=== PATIENT | female | born 1940 | race Caucasian/White ===

== ENCOUNTER 2025-08-27 12:41 | Inpatient (IN) | payer MEDICARE, SELFPAY ==
[2025-08-26] VITALS (9 sets, daily range): BP systolic 100–147; BP diastolic 44–61; BMI 18.9
--- NOTE | 2025-08-26 14:35 | ED.GENMED ---
History of Present Illness
<DAYAN Smith - Last Filed: 08/26/25 21:26>
General
Chief Complaint: Urinary Symptoms
Source: patient
Exam Limitations: none
Time Seen by Provider: 08/26/25 14:29
Nursing documentation reviewed up to this point in time: agreed with
History of Present Illness
History of Present Illness:
Patient is an 84 a female history of hypertension hyperlipidemia A-fib. On Eliquis presents here to the ER. Family at bedside reports patient is from [place] and they recently brought her to this area via plane last night. Prior to that
she was in a fdc getting rehab. She was getting rehab after hospitalization for UTI sepsis and encephalitis/afib . In he was hospitalized at [facility](for UTI sepsis/change in mental status.
Patient was found to be in A-fib during that hospitalization. Her altered mental status was felt to be multifactorial including new onset cirrhosis with hepatic encephalopathy sepsis secondary to complicated UTI, electrolyte imbalance and possible
underlying cognitive impairment.
Family reports when they left the fdc they were informed that she has pneumonia and was given 1 dose of Levaquin patient complains of pain all over. She has neuropathy. She feels weak. She denies any fevers. She denies any dysuria. She
denies any present cough.
Records from nursing facility state the patient has history of chronic thrombocytopenia
Phy Exam
<DAYAN Smith - Last Filed: 08/26/25 21:26>
General Physical Exam
General Presentation: no apparent distress
General age: appears stated age
General Skin: warm and dry
General Habitus: elderly
General Mental: alert
Cardiovascular Exam
Cardiovascular Exam: regular rate/rhythm
Gastrointestinal Exam
Gastrointestinal Exam: non tender and soft
Neurological Exam
Neurological Exam: alert and oriented x3
Musculoskeletal Exam
Musculoskeletal Exam: full ROM
Skin Exam
Skin Exam: normal color and warm/dry
Psychiatric Exam
Psychiatric Exam: normal mood/affect
Course
<DAYAN Smith - Last Filed: 08/26/25 21:26>
Orders/Labs/Results
Orders:
Orders
08/26/25 14:25
Urinalysis Reflex To Culture Urgent
Date Specimen was Collected: 08/26/25
Time Specimen was Collected: 14:25
Urine Microscopic Reflex Cult Urgent
Urine Culture Urgent
MARII Source: U
Specimen Description:
Date Specimen was Collected: 08/26/25
Time Specimen was Collected: 14:25
08/26/25 14:45
Straight cath- Treatment ONCE
08/26/25 14:46
0.9% Sodium Chloride 500 ml [Nss] 500 ml IV BOLUS
Chest [CR Chest - 2 Views ] Urgent
Comment:
Reason For Exam: cough
08/26/25 18:08
COVID-19 Antigen Urgent
Source: Nasal Swab
Complete Blood Count/With Diff Urgent
Comprehensive Metabolic Panel Urgent
Influenza A+B Rapid Molecular Urgent
MARII Source: Nasal Swab
Specimen Description:
08/26/25 19:02
Electrocardiogram (*1) Stat
Reason for Study: Other
Other Reason for Exam: chest pain
EKG- Treatment ONCE
08/26/25 19:41
CT Abd/pelvis W Iv Cont Urgent
Comment:
Reason For Exam: abd pain/distension
08/26/25 19:42
Bladder Scan- Treatment ONCE
Morphine Sulfate 2 mg IV NOW STA
08/26/25 20:40
Ammonia Urgent
08/26/25 21:21
Cefepime HCl [Maxipime] 1,000 mg IV NOW STA
Doxycycline Hyclate [Vibramycin] 100 mg 0.9% Sodium Chloride 250 ml [Nss] 250 ml IV NOW
Abnormal Lab Results
08/26/25 08/26/25 08/26/25
14: 18:08 20:40
RBC 3.59 L 10^6/uL
(4.20-5.40)
Hgb 11.3 L g/dL
(12.0-16.0)
Hct 32.9 L %
(37.0-47.0)
MCH 31.5 H pg
(27.0-31.0)
RDW 17.9 H %
(11.5-14.5)
Plt Count 79 L 10^3/uL
(130-400)
Absolute Lymphs (auto) 0.7 L 10^3/uL
(1.2-3.4)
Lymphocytes % 13.6 L %
(20.5-51.1)
Monocytes % 11.4 H %
(1.7-9.3)
Sodium 131 L mmol/L
(135-145)
Glucose 116 H mg/dl
(70-99)
AST 44 H U/L
(14-36)
ALT 47 H U/L
(0-35)
Ammonia < 9 L umol/L
(9-30)
Total Protein 5.9 L g/dl
(6.3-8.2)
Ur Occult Blood Reflex 1+ A
(Negative)
Urine Bilirubin 1+ A
(Negative)
Leukocyte Esterase Rfl 2+ A
(Negative)
Urine Bacteria (Reflex) Moderate A
(Negative)
Urine Albumin (Reflex) 3+ A
(Neg - Trace)
08/26/25 18:08
08/26/25 18:08
Vital Signs
Initial and Last Documented VS:
Initial Vital Signs
Temp Pulse Resp Pulse Ox
98.7 F 71 16 98
08/26/25 12:40 08/26/25 12:40 08/26/25 12:40 08/26/25 12:40
Last Documented Vital Signs
Temp Pulse Resp BP Pulse Ox
98.0 F 75 22 115/61 96
08/26/25 19:52 08/26/25 21:00 08/26/25 21:00 08/26/25 21:00 08/26/25 21:00
Glost Tile Shader consulted with Physician
Glost Tile Shader consulted with physician?: Yes
Name of Physician Consulted: Abhliash
<Jairon Cerda, DO - Last Filed: 08/26/25 19:43>
Orders/Labs/Results
Orders:
Orders
08/26/25 14:25
Urinalysis Reflex To Culture Urgent
Date Specimen was Collected: 08/26/25
Time Specimen was Collected: 14:25
Urine Microscopic Reflex Cult Urgent
Urine Culture Urgent
MARII Source: U
Specimen Description:
Date Specimen was Collected: 08/26/25
Time Specimen was Collected: 14:25
08/26/25 14:45
Straight cath- Treatment ONCE
08/26/25 14:46
0.9% Sodium Chloride 500 ml [Nss] 500 ml IV BOLUS
Chest [CR Chest - 2 Views ] Urgent
Comment:
Reason For Exam: cough
08/26/25 18:08
COVID-19 Antigen Urgent
Source: Nasal Swab
Complete Blood Count/With Diff Urgent
Comprehensive Metabolic Panel Urgent
Influenza A+B Rapid Molecular Urgent
MARII Source: Nasal Swab
Specimen Description:
08/26/25 19:02
Electrocardiogram (*1) Stat
Reason for Study: Other
Other Reason for Exam: chest pain
EKG- Treatment ONCE
08/26/25 19:41
CT Abd/pelvis W Iv Cont Urgent
Comment:
Reason For Exam: abd pain/distension
08/26/25 19:42
Bladder Scan- Treatment ONCE
Morphine Sulfate 2 mg IV NOW STA
08/26/25 20:40
Ammonia Urgent
08/26/25 21:21
Cefepime HCl [Maxipime] 1,000 mg IV NOW STA
Doxycycline Hyclate [Vibramycin] 100 mg 0.9% Sodium Chloride 250 ml [Nss] 250 ml IV NOW
Abnormal Lab Results
08/26/25 08/26/25 08/26/25
14: 18:08 20:40
RBC 3.59 L 10^6/uL
(4.20-5.40)
Hgb 11.3 L g/dL
(12.0-16.0)
Hct 32.9 L %
(37.0-47.0)
MCH 31.5 H pg
(27.0-31.0)
RDW 17.9 H %
(11.5-14.5)
Plt Count 79 L 10^3/uL
(130-400)
Absolute Lymphs (auto) 0.7 L 10^3/uL
(1.2-3.4)
Lymphocytes % 13.6 L %
(20.5-51.1)
Monocytes % 11.4 H %
(1.7-9.3)
Sodium 131 L mmol/L
(135-145)
Glucose 116 H mg/dl
(70-99)
AST 44 H U/L
(14-36)
ALT 47 H U/L
(0-35)
Ammonia < 9 L umol/L
(9-30)
Total Protein 5.9 L g/dl
(6.3-8.2)
Ur Occult Blood Reflex 1+ A
(Negative)
Urine Bilirubin 1+ A
(Negative)
Leukocyte Esterase Rfl 2+ A
(Negative)
Urine Bacteria (Reflex) Moderate A
(Negative)
Urine Albumin (Reflex) 3+ A
(Neg - Trace)
08/26/25 18:08
08/26/25 18:08
Vital Signs
Initial and Last Documented VS:
Initial Vital Signs
Temp Pulse Resp Pulse Ox
98.7 F 71 16 98
08/26/25 12:40 08/26/25 12:40 08/26/25 12:40 08/26/25 12:40
Last Documented Vital Signs
Temp Pulse Resp BP Pulse Ox
98.0 F 75 22 115/61 96
08/26/25 19:52 08/26/25 21:00 08/26/25 21:00 08/26/25 21:00 08/26/25 21:00
<DAYAN Smith - Last Filed: 08/26/25 21:26>
MDM/Problems Addressed
Differential Diagnosis Includes:
Not limited to pneumonia, uti, dehydration electrolyte abnormality
MDM/Problems Addressed:
As documented patient is 84-year-old female from [place] recently hospitalized in [place] and then discharged to a nursing facility. Family brought patient last night. Patient was recently treated for possible pneumonia and UTI.
Patient presented with weakness pain everywhere. Patient is awake alert. In review of fdc records patient was admitted for altered mental status and had UTI metabolic and hepatic encephalopathy new onset cirrhosis and also had A-fib at
that time. Patient presents awake alert no fevers here with a normal white count stable hemoglobin. Patient's creatinine is normal sodium very minimally low LFTs minimally elevated ammonia less than 9. No obvious UTI. No acute findings on chest
x-ray however CAT scan was done as patient complained of some abdominal distention. CAT scan does show a mild right lower lobe pneumonia. CAT scan also does show moderate cirrhosis severe portal hypertension with varices and acute cystitis.
Family reports patient was given 1 dose of Levaquin at the fdc. Case discussed with admitting hospitalist IV doxycycline and cefepime ordered will require admission. Family at bedside.
<DAYAN Smith - Last Filed: 08/26/25 21:26>
*Radiology
Radiology exam reviewed: radiology read reviewed
*Pulse Oximetry
SaO2: 97
Oxygen Mode of Delivery: Room air
Patient hypoxic: no
*EKG
Interpreted by ED Provider?: Yes
Heart Rate: 73
Rate: normal
Rhythm: sinus
Ischemia: no ischemia
*Critical Care Note
Total Time (30-74mins, 75-104mins- exclusive of procedures): Not Applicable
Data Reviewed
Review of Other/Old Records Reveals: Other (prison records)
Source: patient and family
ED Attending Note
<DAYAN Smith - Last Filed: 08/26/25 21:26>
-
Portions of this chart may have been created with voice recognition software.� Occasional wrong word or��sound alike� substitutions may have occurred due to the inherent limitations of voice recognition software.
<Jairon Cerda DO - Last Filed: 08/26/25 19:43>
ED Attending Note
Patient seen and examined by attending physician: Yes
I performed the substantive portion of visit, reviewed & personally made and approve the management plan that is documented in note by myself or NIKITA.: Yes
Discharge Plan
Departure
Patient Disposition: Admit
Date of Disposition: 08/26/25
Time of Disposition: 21:04
Admit to: Med/Surg
Admit to doctor: hospitalist
Presentation/result/management discussed w/ accepting MD/DO: Hospitalist
Patient with high blood pressure during this ER visit?: No
Condition: Fair
Covid-19: Not Applicable
Discharge Problem:
right lower lobe pneumonia, Weakness
Referrals:
UNKNOWN - PT DOES,NOT KNOW [Family Provider]
Interventions
Interventions:
*Risk Screen - Suicide Last Done: 08/26/25 12:40
*Neglect/Abuse Screening Last Done: 08/26/25 12:40
*ED- Fall Risk Assessment Last Done: 08/26/25 14:23
*ED COVID-19 Vaccine History Last Done: 08/26/25 14:23
*ED Influenza Vaccine History Last Done: 08/26/25 14:23
ED-Female Genitourinary Assessment Last Done: 08/26/25 19:51
Discharge Date and Time
Print Language: SLOVENIAN
[2025-08-26 15:15] LABS: Urine Character Slightly Cloudy (Clear)
[2025-08-26] MEDS: NSS 500 IV (16:32)
[2025-08-26 17:35] LABS: Urine Red Blood Cell 0-2 /HPF (0-2)
[2025-08-26 18:42] LABS: ALT (SGPT) 47 U/L (0-35); AST (SGOT) 44 U/L (14-36); Albumin 3.5 g/dl (3.5-5.0); Alkaline Phosphatase 61 U/L (38-126); Blood Urea Nitrogen 11 mg/dl (7-17); Calcium 8.9 mg/dl (8.4-10.2); Carbon Dioxide 23 mmol/L (22-30); Chloride 103 mmol/L (98-107); Glucose 116 mg/dl (70-99); Hematocrit 32.9 % (37.0-47.0); Hemoglobin 11.3 g/dL (12.0-16.0); Mean Corp Hgb Conc. 34.3 g/dL (33.0-37.0); Mean Corpuscular Volume 91.6 fL (81.0-99.0); Nucleated Red Blood Cells % 0 %; Potassium 3.9 mmol/L (3.5-5.1); Red Cell Dist. Width 17.9 % (11.5-14.5); Sodium 131 mmol/L (135-145); Total Protein 5.9 g/dl (6.3-8.2); eGFR > 60.00
[2025-08-26 19:00] LABS: COVID-19 Antigen Negative (Negative)
[2025-08-26 19:02] LABS: Platelet Count 79 10^3/uL (130-400)
[2025-08-26] MEDS: MORPHINE SULFATE 2 MG IV (20:46)
[2025-08-26 20:56] LABS: Ammonia < 9 umol/L (9-30)
--- NOTE | 2025-08-26 21:37 | HPS.HSE ---
Family Physician
-
Family Physician: NOT KNOW UNKNOWN - PT DOES
Chief Complaint
-
Urinary urgency
History of Present Illness
This is a 84-year-old female with past medical history significant for diabetes not on insulin, newly diagnosed cryptogenic cirrhosis, atrial fibrillation, hypertension, hyperlipidemia, thrombocytopenia who was recently [place] 7 days in the setting of sepsis and then discharged to intermediate where she spent additional 14 days and was brought to [place] yesterday by family presenting to the emergency department today for complaints of generalized
aches and pains and urinary symptoms.
It seems like while she was seen [place] where she generally lives she was diagnosed with sepsis from a urinary tract infection. Family reports that she had Yersenia in the stool at that time as well. She had pleural effusion and was oxygen
dependent. Found to have cirrhosis of unknown etiology. No history of alcohol use. No history of hepatitis infection. New diagnosis of atrial fibrillation started on metoprolol and Eliquis.
During stay at intermediate looks like she had continued urinary symptoms and had a UA on August 19 showing greater than 20,000 colony-forming units of Pseudomonas that was pansensitive. She was started on ciprofloxacin. While she was on the
ciprofloxacin she continued to have weakness fatigue and generalized aches and had x-ray which showed all possible pneumonia. Patient apparently was given Levaquin but has not started on till today.
Family went to get her from the intermediate because she was being discharged to home by herself. They note chronic low appetite. They note chronic fatigue and ongoing weakness. Ambulatory difficulties also noted. She complained to them and to
me of urgency but denies any flank pain. Denies fevers or chills. Denies feeling dizzy or lightheaded. She denies any cough. She denies any diarrhea nausea or vomiting.
In the emergency department she was afebrile, blood pressure was 115/60 with a pulse of 73 and she was satting 98% at rest on room air.
ECG shows a normal sinus rhythm at a rate of 73. The CBC notable for thrombocytopenia to 79 with otherwise normal WBCs and hemoglobin. Electrolytes notable for a sodium of 131 but otherwise unremarkable with normal BUN and creatinine. Glucose was
116. UA still shows 2+ leukocyte esterase positive WBCs and moderate bacteria. She had a CT of the abdomen pelvis showing a constellation of findings including severe portal hypertension with esophageal varices, severe splenomegaly,
cholelithiasis and some gallbladder distention without evidence of acute cholecystitis. She has acute cystitis and constipation as well. There is a small right pleural effusion and a mild right lower lobe pneumonia.
Medical History
Past Medical History
Past Medical History: Reports Arrhythmia (Atrial fibrillation), HTN, Hypercholesterolemia, NIDDM and Other (Cirrhosis)
Past Surgical History: Reports None
Social History
Tobacco: Former Smoker
Alcohol: None
Drug: None
Personal:
Living: With Family
Family History
Family History: Not pertinent
Allergies / Home Medications
Allergies reflects when Allergies were last updated in [facility].
Home Medications with original date entered in [facility]
Allergy/Medication List:
Allergies
Allergy/AdvReac Type Severity Reaction Status Date / Time
No Known Allergies Allergy Verified 08/26/25 12:44
Eliquis 2.5 mg tablets, 2.5 mg p.o. twice daily
Rosuvastatin 10 mg tablets, 10 mg p.o. at bedtime
Metoprolol titrate 25 mg tablets, 25 mg p.o. twice daily
Sertraline 0.5 mg tablet, 25 mg p.o. daily
Diltiazem CR 180 mg tablet, 180 mg p.o. daily
Melatonin 5 mg tablets, 5 mg p.o. at bedtime
Review of Systems
-
Constitutional: Reports No Symptoms
EENT: Reports No Symptoms
Respiratory: Reports No Symptoms
Cardiac: Reports No Symptoms
Abdomen/GI: Reports No Symptoms
: Reports No Symptoms
Musculoskeletal: Reports No Symptoms
Skin: Reports No Symptoms
Neurological: Reports No Symptoms
Endocrine: Reports No Symptoms
Hematologic/Lymphatic: Reports No Symptoms
Psych: Reports Anxiety
Physical Exam
Vital Signs
Vital Signs
Temp Pulse Resp BP Pulse Ox
98.0 F 75 22 115/61 96
08/26/25 19:52 08/26/25 21:00 08/26/25 21:00 08/26/25 21:00 08/26/25 21:00
Physical Exam
General: Well Developed, Well Nourished and No Apparent Distress
HEENT: NormoCephalic, Moist mucous membranes and Atraumatic
Respiratory: Clear
Cardiac: S1/S2 and Regular Rhythm; No Murmur or Rub
GI: Soft, Non Tender, Non Distended and Normal Bowel Sounds; No Organomegaly
Rectal: Deferred by Provider
Musculoskeletal: No Clubbing, No Cyanosis and No Edema
Skin: No Rash
Neuro: AO x 3 and Nonfocal/grossly intact
Psych: Anxious
Laboratory Results
-
08/26/25 18:08
08/26/25 18:08
Laboratory Results
Total Bilirubin 1.0 mg/dl (0.2-1.3) 08/26/25 18:08
AST 44 U/L (14-36) H 08/26/25 18:08
ALT 47 U/L (0-35) H 08/26/25 18:08
Alkaline Phosphatase 61 U/L (38-126) 08/26/25 18:08
Data Reviewed
-
CT Scan: Report Reviewed by me
Medical Tests (Nuc Med, Echo, EKG etc): Image Personally Visualized and interpreted
Lab Data: Labs Reviewed by me
Old Records: Reviewed
Impression/Plan
-
IMPRESSION:
84-year-old was recently admitted for sepsis due to urinary tract infection and possibly Yersenia infection with a 7-day hospital stay followed by 14 days intermediate, just discharged from intermediate arrival at home yesterday and brought to the
emergency department today for ongoing urinary urgency. Looks like she was diagnosed a UTI while at the intermediate on 1016 and also recently diagnosed with pneumonia. In the emergency department CT scan confirmed the pneumonia in the right lower
lobe, small pleural effusion noted as well. UA remains positive. He is hemodynamically stable afebrile with labs only notable for sodium of 131. Overall patient appears quite anxious and complains of generalized discomfort without any focal
findings.
PLAN:
Pneumonia -possible right lower lobe pneumonia on x-ray. No fever and no leukocytosis. Some generalized weakness. Was supposed to start Levaquin per intermediate records.
- Admit to MedSurg for now
- Start cefepime and doxycycline
- Check procalcitonin in a.m.
- Incentive spirometry
- Oxygen as needed
- Check urine Legionella and pneumococcal antigen
Urinary tract infection
- Urine culture sent
- IV antibiotics as above
- Monitor I's and O's
Atrial fibrillation -
- Continue diltiazem
- continue metoprolol for now
- on eliquis, determination of bleeding risk after GI evaluation for the esophageal varices
Cirrhosis -appears to be a new diagnosis with significant portal hypertension, no ascites. Esophageal varices on CT scan.
- Continue metoprolol for now
- No ascites, no indication for diuretics
- Abnormal LFTs at this time, no encephalopathy, check ammonia
- GI consult
Diabetes
- Monitor daily glucose for now, regular diet, small and bite-size with regular fluids
Hyponatremia - Based on hx mild hypovolemia. No ascites. No peripheral edema. She is on sertraline so possible siadh.
- gentle hydration overnight
- orthostatic vs in am
- check tsh
- repeat urine sodium and osm in am
Debility/ambulatory dysfunction -patient likely needs for the intermediate care
- PT consultation
- Case management
DVT prophylaxis�on apixaban
CODE STATUS�DNR
[2025-08-26] MEDS: VIBRAMYCIN 260 MG IV (22:01)
[2025-08-26] MEDS: MAXIPIME 1000 MG IV (22:01)
[2025-08-27 00:05] VITALS: BMI 18.9
[2025-08-27] MEDS: SENOKOT-S 1 TABLET PO (00:14)
[2025-08-27] MEDS: ROXICODONE 5 MG PO ×4 (00:14→19:41)
[2025-08-27] MEDS: MELATONIN 5 MG PO ×2 (00:14→21:37)
[2025-08-27] MEDS: NSS 500 IV (00:14)
[2025-08-27] MEDS: CILOXAN 0.3% OPHTHALMIC SOLUTION 2 DROP RIGHT EYE (00:50)
[2025-08-27 02:08] LABS: Procalcitonin 0.09 ng/ml (0.0-0.25)
[2025-08-27] MEDS: CILOXAN 0.3% OPHTHALMIC SOLUTION RIGHT EYE (03:21)
[2025-08-27] MEDS: STERILE WATER FOR INJECTION 10 ML IV ×4 (03:24→21:30)
[2025-08-27] MEDS: MAXIPIME 1000 MG IV ×4 (03:24→21:31)
[2025-08-27 05:45] VITALS: BP 121/57
--- NOTE | 2025-08-27 05:59 | PTCARENOTE ---
Pt has been crying for the past hr due to leg and lower back pain, Pain medication not due. [facility] notified and order Gertrude. VSS.
[2025-08-27] MEDS: TYLENOL 650 MG PO (06:14)
[2025-08-27 07:40] VITALS: BP 149/85
[2025-08-27 08:36] LABS: Ammonia < 9 umol/L (9-30)
[2025-08-27 08:47] LABS: INR 1.25; PT 16.0 Sec (11.4-14.6)
[2025-08-27 09:01] LABS: Blood Urea Nitrogen 9 mg/dl (7-17); Calcium 8.3 mg/dl (8.4-10.2); Carbon Dioxide 24 mmol/L (22-30); Chloride 105 mmol/L (98-107); Estimated Creatinine Clearance 57 ml/min; Glucose 101 mg/dl (70-99); Potassium 3.8 mmol/L (3.5-5.1); Sodium 133 mmol/L (135-145); eGFR > 60.00
[2025-08-27 09:16] LABS: Hematocrit 31.7 % (37.0-47.0); Hemoglobin 10.6 g/dL (12.0-16.0); Mean Corp Hgb Conc. 33.4 g/dL (33.0-37.0); Mean Corpuscular Volume 93.2 fL (81.0-99.0); Platelet Count 72 10^3/uL (130-400); Red Cell Dist. Width 17.8 % (11.5-14.5)
[2025-08-27] MEDS: CARDIZEM CD 180 MG PO (09:19)
[2025-08-27] MEDS: VIBRAMYCIN 100 MG PO ×2 (09:19→19:41)
[2025-08-27] MEDS: ZOLOFT 25 MG PO (09:19)
[2025-08-27] MEDS: FLOMAX 0.4 MG PO (09:20)
[2025-08-27] MEDS: ELIQUIS 2.5 MG PO ×2 (09:20→19:41)
[2025-08-27] MEDS: LOPRESSOR 25 MG PO ×2 (09:20→21:31)
[2025-08-27] MEDS: CILOXAN 0.3% OPHTHALMIC SOLUTION 1 DROP RIGHT EYE ×4 (09:21→19:41)
[2025-08-27] MEDS: COZAAR 25 MG PO (09:21)
--- NOTE | 2025-08-27 09:22 | CON.GI ---
Addendum entered and electronically signed by Sylvain Pickens MD 08/27/25 17:20:
I saw and examined the patient.
The COTTON BROKER or PA's note was reviewed and I agree with the note.
Comment: 84yo female recently moved up from [place] to be close to family admitted with UTI and PNA. She was recently dx'd with cirrhosis on imaging in [place]. CT this admission shows cirrhosis, severe portal HTN with esophageal varices, severe
splenomegaly. She reports drinking occasional EtOH, glass of wine or two per day. Denies hematemesis, ascites, jaundice. AST 44, ALT 47, TB 1.0, INR 1.25, plt 72, hgb 10.6. MELD 3.0 = 13. Hep B/C negative. On Eliquis for afib
REC:
Work up and follow up for cirrhosis can be done outpt after d/c for UTI/PNA
She has appt in October with me
OK to remain on eliquis. She has esophageal varices but no prior bleed. Cont beta charity
She had constipation on admission but had mult BMs after enema
Will sign off for now. Please call back if needed
Addendum entered and electronically signed by DAYAN Cheek 08/27/25 15:49:
I was able to speak to the patient's daughter Yusra. She confirmed the fact that the patient had Yersinia. She does not recall being told that her mother had diarrhea while hospitalized in [place]. She does state that when her mother was
in the longterm/rehab she did develop some diarrhea and was given stuff to 'stop diarrhea'. She confirms all other information given to us from the patient. Reviewed current plan with daughter. Also reviewed follow-up.
Original Note:
Consultation
-
Date/Time Consultation Requested: 08/26/25 [id number]
Date/Time Consultation Performed: 08/27/25 0830
Requesting Provider: Dr. Hughes
Performing Provider: Dr. Pickens/DAYAN Dickson
Reason for Consultation: new dx cirrhosis
Medical History
Chief Complaint / HPI
Chief Complaint: weakness
History of Present Illness:
84-year-old female with past medical history of hypertension, hyperlipidemia, depression, diabetes, peripheral neuropathy, osteoporosis, hard of hearing, UTI, new diagnosis of A-fib, cirrhosis, thrombocytopenia who comes from [place] where
she has lived. She was diagnosed with UTI sepsis and was hospitalized there for approximately 7 days and followed by acute inpatient rehab for 14 days thereafter. She was discharged and was brought up to [place] to stay with family yesterday.
She was brought to the emergency room for generalized aches pains urinary symptoms and weakness. We are asked to evaluate for new diagnosis of cirrhosis. I did try to contact her daughter Yusra [phone] for further information however it
went to voicemail I did leave a message. The patient however is able to give good amount of information. She is hard of hearing. She states that everything was fine until the end of July. She states that she lives independently. She was
only on a couple medications. From the records she was admitted for UTI and sepsis. There are also questions that she had Yersenia in the stool at that time. She had pleural effusion and was oxygen dependent. She was diagnosed with cirrhosis on
imaging. She was also diagnosed with A-fib and started on metoprolol, Cardizem and Eliquis. She was on Cipro for UTI. She was supposed to start on Levaquin for pneumonia on the day of admission. Currently she is on doxycycline and Cipro. She
does continue on Eliquis 2.5 mg p.o. twice daily. I was able to review her prior labs from outpatient. LFTs are stable, with minimal transaminitis elevation (currently AST 44, ALT 47), previously AST 63 and ALT of 48. She does have a macrocytic
anemia with thrombocytopenia. Currently hemoglobin 10.6, down from 11.3 on admission she received a 500 cc fluid bolus. Hemoglobin on 08/17 was 11.5, hemoglobin on 08/12 was 13.4. She has not had a bowel movement here. She had a CT of the abdomen
and pelvis with IV contrast only, I reviewed this personally. She has significant amount of stool throughout the entire colon. Per radiology read moderate hepatic cirrhosis, severe splenomegaly, cholelithiasis and gallbladder distention, small
hiatal hernia, mild circumferential wall thickening in the duodenum, no abdominal ascites, thickened endometrium, mild diffuse urinary bladder wall thickening suggesting acute cystitis, small right pleural effusion, mild right lower lobe pneumonia.
She does state from a GI perspective she had no indigestion, heartburn, reflux or abdominal pain. Her bowel movements prior to hospitalization in July were soft, formed, regular and daily. She has no prior history of GI issues that she is
aware of. Her last colonoscopy was in '[place]'. She does not recall them telling her anything was abnormal. She cannot recall the results of this. She does not have a smoking history. She may have 1 or 2 beers a month versus an espresso
martini. She does not have a history of drinking anything more than this. She denies any NSAID or aspirin use. She does not take anything for indigestion or heartburn. She denies any tattoos, piercings, IV drug use or blood transfusions in the
past. No history of hepatitis. No family history of liver disease that she is aware of. Her father had an unknown cancer. She denies any history of melena, hematochezia, acholic stools or bilirubinuria. Currently she has some poor appetite and
decreased oral intake. She states that she has not been able to eat much. She states she feels very full. She has not been able to move her bowels and does not recall when her last bowel movement was. She is awake alert and oriented x 3. She
has no signs of asterixis. Her ammonia is less than 9.
Past Medical History
Past Medical History: Other (Hypertension, hyperlipidemia, depression, diabetes, peripheral neuropathy, osteoporosis, hard of hearing, UTI, pleural effusion, pneumonia, A-fib, cirrhosis, thrombocytopenia)
Past Surgical History: None
Social History
Tobacco: Non-Smoker
Alcohol: Occasional (1-3 alcoholic beverages a month)
Drug: None
Personal:
Living: Alone
Employment: Retired
Family History
Family History: Other (No family history of gastrointestinal malignancy or IBD)
Allergies / Home Medications
Allergy/AdvReac Type Severity Reaction Status Date / Time
No Known Allergies Allergy Verified 08/26/25 12:44
�Medication �Instructions �Recorded
apixaban 2.5 mg tablet (Eliquis) 2.5 mg PO BID Blood Clot 08/26/25
Prevention/Tx
cholecalciferol (vitamin D3) 50 50 mcg PO DAILY Supplement 08/26/25
mcg (2,000 unit) capsule (Vitamin
D3)
ciprofloxacin HCl 500 mg tablet 1,000 mg PO BID Infection 08/26/25
diltiazem HCl 180 mg 180 mg PO DAILY Heart 08/26/25
capsule,extended release 24 hr Disease/Condition
levofloxacin 500 mg tablet 500 mg PO DAILY Infection 08/26/25
losartan 25 mg tablet (Cozaar) 12.5 mg PO DAILY Blood Pressure 08/26/25
metoprolol tartrate 25 mg tablet 25 mg PO BID Blood Pressure 08/26/25
rosuvastatin 10 mg tablet 10 mg PO DAILY High Cholesterol 08/26/25
sertraline 25 mg tablet 25 mg PO DAILY Mental 08/26/25
Health/Anxiety
tamsulosin 0.4 mg capsule 0.4 mg PO DAILY Urinary Issue 08/26/25
Review of Systems
-
All other systems: A 12 pt ROS was Negative except as stated above in HPI
Vital Signs
Temp Pulse Resp BP Pulse Ox
98.0 F 74 18 149/85 98
08/27/25 07:40 08/27/25 07:40 08/27/25 07:40 08/27/25 07:40 08/27/25 07:40
Physical Exam
Exam
General: No Apparent Distress
HEENT: Anicteric
Respiratory: Clear (Anterior)
Cardiac: Regular Rhythm
GI: Soft, Non Tender, Non Distended and Normal Bowel Sounds
Skin: Warm and Dry
Neuro: AO x 3
Psych: Calm and Other (No asterixis)
Results
WBC 3.4 10^3/uL (4.8-10.8) L 08/27/25 08:06
Hgb 10.6 g/dL (12.0-16.0) L 08/27/25 08:06
Hct 31.7 % (37.0-47.0) L 08/27/25 08:06
MCV 93.2 fL (81.0-99.0) 08/27/25 08:06
Plt Count 72 10^3/uL (130-400) L 08/27/25 08:06
Absolute Neuts (auto) 3.9 10^3/uL (1.4-6.5) 08/26/25 18:08
PT 16.0 Sec (11.4-14.6) H 08/27/25 08:05
INR 1.25 08/27/25 08:05
Sodium 133 mmol/L (135-145) L 08/27/25 08:05
Potassium 3.8 mmol/L (3.5-5.1) 08/27/25 08:05
Chloride 105 mmol/L (98-107) 08/27/25 08:05
Carbon Dioxide 24 mmol/L (22-30) 08/27/25 08:05
BUN 9 mg/dl (7-17) 08/27/25 08:05
Creatinine 0.7 mg/dL (0.6-1.0) 08/27/25 08:05
Calcium 8.3 mg/dl (8.4-10.2) L 08/27/25 08:05
Total Bilirubin 1.0 mg/dl (0.2-1.3) 08/26/25 18:08
AST 44 U/L (14-36) H 08/26/25 18:08
ALT 47 U/L (0-35) H 08/26/25 18:08
Alkaline Phosphatase 61 U/L (38-126) 08/26/25 18:08
Diagnostic Image Results:
CT abdomen and pelvis with IV contrast only:
1. MODERATE HEPATIC CIRRHOSIS.
2. SEVERE PORTAL HYPERTENSION with esophageal varices.
3. Severe splenomegaly.
4. Cholelithiasis and gallbladder distention.
5. Small hiatal hernia.
6. Large amount of fecal material throughout the colon suggesting CONSTIPATION.
7. Thickened endometrium (endometrial carcinoma or hyperplasia).
8. Mild diffuse urinary bladder wall thickening suggesting ACUTE CYSTITIS.
9. Severe calcific atherosclerotic plaque in the abdominal aorta.
10. Small right pleural effusion.
11. Mild right lower lobe pneumonia.
12. 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
13. Chronic vertebral body endplate fractures of L3.
Chest x-ray:
1. Minimal reticular interstitial thickening at each lung base. Differential diagnosis includes interstitial pneumonitis, senescent change, and mild interstitial fibrosis.
2. Otherwise clear lungs.
Prior GI Procedures:
EGD: Never
Colonoscopy: Patient states multiple years ago and '[place]'. Does not recall finding
Assessment / Plan
-
84-year-old female with past medical history of hypertension, hyperlipidemia, depression, diabetes, peripheral neuropathy, osteoporosis, hard of hearing, UTI, new diagnosis of A-fib, cirrhosis, thrombocytopenia who comes from [place] where
she has lived. She was diagnosed with UTI sepsis and was hospitalized there for approximately 7 days and followed by acute inpatient rehab for 14 days thereafter. She was discharged and was brought up to [place] to stay with family yesterday.
She was brought to the emergency room for generalized aches pains urinary symptoms and weakness. We are asked to evaluate for new diagnosis of cirrhosis. I did try to contact her daughter Yusra [phone] for further information however it
went to voicemail I did leave a message. Patient currently admitted with pneumonia, UTI and weakness. Cirrhosis is new diagnosis. No ascites seen on imaging. There is sign of paraesophageal varices around the distal esophagus. Patient denies
any history of bleeding. BUN within normal limits. She does have anemia. Macrocytic. Significant constipation seen on CT imaging, prior to this patient had no issues. Question of Yersinia on prior hospitalization. Need to discuss with daughter
further, however currently with severe constipation in the setting of Cardizem. Ammonia within normal limits without any signs of hepatic encephalopathy.
Impression:
Cirrhosis, new diagnosis
Severe constipation, possibly medication induced-> Cardizem, unsure if prior medications were given on other hospitalization to stop diarrhea
Anemia, macrocytic
Small hiatal hernia, mild circumferential wall thickening in duodenum on imaging
Thrombocytopenia
Paraesophageal varices around distal esophagus seen on CT imaging-> on beta-charity(metoprolol)
Pneumonia-> possible right lower lobe (on cefepime and doxycycline)
UTI-> currently on antibiotics
A-fib-> on Eliquis, metoprolol and Cardizem
Plan:
- Check iron, TIBC, ferritin, folate, B12
- CBC, BUN, LFTs in a.m.
- Check viral hepatitis panel
- Give milk of molasses enema now, need repeat tomorrow
- MiraLAX twice daily
- Pantoprazole 40 mg daily
- Currently on metoprolol (beta-blocked for varices)
- Follow-up appointment with Dr. Pickens for cirrhosis outpatient workup arrange for 10/12/2025 at 11:30 AM
- Further recommendations to be forthcoming
-
-
Thank you for consultation and allowing me to participate in the patient's care. Please call the building inspection engineer GI physician during the after hours with any questions or concerns.
[2025-08-27] MEDS: BenGay-Like TOPICAL ×3 (09:25→21:37)
[2025-08-27 09:27] LABS: TSH 2.49 uIU/ml (0.47-4.68)
[2025-08-27 09:46] LABS: Vitamin B12 733 pg/ml (239-931)
[2025-08-27 09:48] LABS: Hepatitis B Surface Antigen Negative (Negative)
[2025-08-27 10:06] LABS: Hepatitis C Antibody Negative (Negative)
[2025-08-27] MEDS: MIRALAX 17 GRAMS PO ×2 (10:06→19:41)
[2025-08-27] MEDS: PROTONIX 40 MG PO (10:12)
[2025-08-27 10:31] LABS: Glycohemoglobin (HgbA1c) 6.4 % (4.0-5.9)
--- NOTE | 2025-08-27 11:20 | W.PN.HOSP.TC ---
Today's Communication/Plan
-
see outlined plan below
Assessment / Plan
Assessment / Plan
Assessment:
Pneumonia
- RLL
- continue Cefepime/Doxy, day 1 (noted procal negative but will treat given recent hospitalization)
- continue IS/Acapella
- supportive care
UTI
- CT: Mild diffuse urinary bladder wall thickening suggesting ACUTE CYSTITIS
- pending culture
- continue Cefepime, day 1
Parox A. Fib
- continue BB/CCB/Eliquis
Cirrhosis, unclear etiology
- splenomegaly, severe portal hypertension, Paraesophageal varices around distal esophagus seen on CT imaging
- continue BB
- ammonia negative
- hepatitis panels
- GI evaluation
Severe opioid induced constipation
- enema/bowel regimen per GI
Anemia, macrocytic
Thrombocytopenia
- anemia workup
Small hiatal hernia, mild circumferential wall thickening
Type 2 DM
- check A1c
Essential HTN
- ARB/BB
Hyponatremia
- monitor
- TSH normal
Ambulatory dysfunction
- PT/OT
HLD - statin
Chronic vertebral body endplate fractures of L3
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
- scheduled Tylenol and lidocaine patches
- prn pain meds
DVT ppx: Eliquis
Code: DNR/DNI
Anticipated Discharge: > 48 hours
Subjective/Interval History
-
Date of Service: August 27, 2025
resting comfortably but reports low back pain at times
Objective Data
-
Labs:
Laboratory Results
08/27/25 08/27/25
08:05 08:06
WBC 3.4 L
Hgb 10.6 L
Hct 31.7 L
Plt Count 72 L
PT 16.0 H
INR 1.25
Sodium 133 L
Potassium 3.8
Chloride 105
Carbon Dioxide 24
BUN 9
Creatinine 0.7
Glucose 101 H
Calcium 8.3 L
Vital Signs:
Vital Signs
Temp Pulse Resp BP Pulse Ox
98.0 F 74 18 149/70 98
08/27/25 07:40 08/27/25 09:19 08/27/25 07:40 08/27/25 09:19 08/27/25 07:40
I&O
08/26/25 08/27/25 08/28/25
06:59 06:59 06:59
Intake Total 620 / 620
Output Total 600 / 600
Balance 20 / 20
Physical Exam
-
General: No Apparent Distress
HEENT: Normocephalic and Atraumatic
Respiratory: Decreased Breath Sounds (RLL); Negative Wheezes
Cardiac: Regular Rhythm and S1/S2
Breast: Deferred by me
Musculoskeletal: No Edema
Neuro: AO x 3
Psych: Calm
Data Reviewed
-
Total Time Spent with Patient (in minutes): 44
Labs: Labs Reviewed by me
[2025-08-27 12:10] VITALS: BMI 18.9
[2025-08-27 13:14] VITALS: BP 88/45; BP 92/45; BP 95/46; BP 97/47; PULSE 58; PULSE 59; PULSE 61; O2SAT 99
[2025-08-27 13:19] VITALS: BP 88/45; BP 92/45; BP 95/46; BP 97/42; PULSE 59; PULSE 60; PULSE 61
[2025-08-27 15:25] VITALS: BP 90/43
--- NOTE | 2025-08-27 15:33 | CM ---
Initial assessment completed, spoke w/ daughter, Yusra. Patient is a 84-year-old female with past medical history significant for diabetes not on insulin, newly diagnosed cryptogenic cirrhosis, atrial fibrillation, hypertension, hyperlipidemia,
thrombocytopenia who was recently hospitalized in [place] for over 7 days in the setting of sepsis and then discharged to half-way where she spent additional 14 days and was brought to [place] yesterday by family presenting to the
emergency department today for complaints of generalized aches and pains and urinary symptoms.
Patient resides w/ her daughter in [facility] in a [place] community. 2 steps to enter from the front, 3 steps to enter from the garage. Yusra shared that patient has been needing assistance w/ ambulation and transfers. Patient needs assistance w/ getting
OOB, walking to the bathroom, getting up from a chair, etc. Patient does not have any DME. Per Yusra, patient never required any DME or devices. Yusra confirmed that patient was at inpatient rehab in [place] for 14 days. No HC hx.
Address, point of contact and insurance verified
PCP: Pt has a appt on 09/28 at [facility]
Pharmacy: [facility]- [place]
Therapy assessed patient, recommending skilled rehab at d/c. Yusra is agreeable to SNF for patient. Identified [facility] as the preferred, agreeable to additional referrals to SNFs in [place].
Patient will require an insurance auth
Plan: SNF
[2025-08-27] MEDS: CRESTOR 10 MG PO (17:02)
[2025-08-27 20:00] VITALS: BMI 18.9
[2025-08-27 23:16] VITALS: BP 102/57
[2025-08-28] MEDS: CILOXAN 0.3% OPHTHALMIC SOLUTION 2 DROP RIGHT EYE ×6 (02:30→23:18)
[2025-08-28] MEDS: STERILE WATER FOR INJECTION 10 ML IV ×4 (02:30→21:18)
[2025-08-28] MEDS: CILOXAN 0.3% OPHTHALMIC SOLUTION RIGHT EYE (02:30)
[2025-08-28] MEDS: MAXIPIME 1000 MG IV ×4 (02:30→21:18)
[2025-08-28] MEDS: ROXICODONE 5 MG PO ×4 (02:31→21:22)
[2025-08-28] MEDS: BenGay-Like 1 APPLIC TOPICAL ×3 (04:00→21:16)
[2025-08-28] MEDS: TYLENOL 650 MG PO (04:24)
[2025-08-28 07:00] VITALS: BP 120/48
[2025-08-28 07:20] LABS: Hematocrit 32.2 % (37.0-47.0); Hemoglobin 10.8 g/dL (12.0-16.0); Mean Corp Hgb Conc. 33.5 g/dL (33.0-37.0); Mean Corpuscular Volume 93.3 fL (81.0-99.0); Nucleated Red Blood Cells % 0 %; Platelet Count 68 10^3/uL (130-400); Red Cell Dist. Width 17.5 % (11.5-14.5)
[2025-08-28 07:32] LABS: ALT (SGPT) 41 U/L (0-35); AST (SGOT) 38 U/L (14-36); Albumin 3.3 g/dl (3.5-5.0); Alkaline Phosphatase 63 U/L (38-126); Blood Urea Nitrogen 9 mg/dl (7-17); Calcium 8.7 mg/dl (8.4-10.2); Carbon Dioxide 24 mmol/L (22-30); Chloride 103 mmol/L (98-107); Estimated Creatinine Clearance 57 ml/min; Glucose 94 mg/dl (70-99); Iron 71 ug/dl (37-170); Potassium 3.7 mmol/L (3.5-5.1); Sodium 128 mmol/L (135-145); Total Protein 5.7 g/dl (6.3-8.2); eGFR > 60.00
[2025-08-28 07:41] LABS: Total Iron Binding Capacity 258 ug/dl (265-497)
[2025-08-28 08:08] LABS: Ferritin 71.0 ng/ml (11.1-264.0)
[2025-08-28 08:39] LABS: Folate 8.2 ng/ml (2.76-20)
[2025-08-28] MEDS: MIRALAX 17 GRAMS PO ×2 (08:46→21:16)
[2025-08-28] MEDS: LOPRESSOR 25 MG PO ×2 (08:46→20:23)
[2025-08-28] MEDS: VIBRAMYCIN 100 MG PO ×2 (08:46→20:09)
[2025-08-28] MEDS: COZAAR 25 MG PO (08:46)
[2025-08-28] MEDS: CARDIZEM CD 180 MG PO (08:46)
[2025-08-28] MEDS: ELIQUIS 2.5 MG PO ×2 (08:47→20:09)
[2025-08-28] MEDS: PROTONIX 40 MG PO (08:47)
[2025-08-28] MEDS: ZOLOFT 25 MG PO (08:47)
[2025-08-28] MEDS: FLOMAX 0.4 MG PO (08:48)
[2025-08-28] MEDS: ZOFRAN 4 MG IV (10:07)
[2025-08-28 10:42] VITALS: BP 127/88
[2025-08-28] MEDS: TYLENOL 1000 MG PO ×3 (11:54→21:26)
[2025-08-28] MEDS: LIDOCAINE 4% PATCH 2 PATCH TOPICAL (11:54)
--- NOTE | 2025-08-28 12:48 | W.PN.HOSP.TC ---
Today's Communication/Plan
-
continue Abx
pain control
rehab evals
DC planning to SNF
Assessment / Plan
Assessment / Plan
Assessment:
Pneumonia
- RLL
- continue Cefepime/Doxy, day 2 (noted procal negative but will treat given recent hospitalization)
- continue IS/Acapella
- supportive care
UTI
- CT: Mild diffuse urinary bladder wall thickening suggesting ACUTE CYSTITIS
- Culture negative
- continue Cefepime, day 2
Parox A. Fib
- continue BB/CCB/Eliquis
Cirrhosis, unclear etiology
- splenomegaly, severe portal hypertension, Paraesophageal varices around distal esophagus seen on CT imaging
- continue BB
- ammonia negative
- hepatitis panels
- GI signed off
Severe opioid induced constipation
- enema/bowel regimen per GI with successful BMs
Anemia, macrocytic
Thrombocytopenia
- suspect chronic
Small hiatal hernia, mild circumferential wall thickening
Type 2 DM
- A1c 6.4%
Essential HTN
- ARB/BB
Hyponatremia
- monitor
- TSH normal
Ambulatory dysfunction
- PT/OT
HLD - statin
Chronic vertebral body endplate fractures of L3
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
- scheduled Tylenol and lidocaine patches
- prn pain meds
DVT ppx: Eliquis
Code: DNR/DNI
Anticipated Discharge: > 48 hours
Subjective/Interval History
-
Date of Service: August 28, 2025
pain controlled
no new complaints
Objective Data
-
Labs:
Laboratory Results
08/28/25
06:41
WBC 4.1 L
Hgb 10.8 L
Hct 32.2 L
Plt Count 68 L
Sodium 128 L
Potassium 3.7
Chloride 103
Carbon Dioxide 24
BUN 9
Creatinine 0.7
Glucose 94
Calcium 8.7
Total Bilirubin 0.9
AST 38 H
ALT 41 H
Alkaline Phosphatase 63
Vital Signs:
Vital Signs
Temp Pulse Resp BP Pulse Ox
98.3 F 74 18 127/88 100
08/28/25 10:42 08/28/25 10:42 08/28/25 10:42 08/28/25 10:42 08/28/25 10:42
I&O
08/27/25 08/28/25 08/29/25
06:59 06:59 06:59
Intake Total 620 / 620 720 / 720
Output Total 600 / 600 200 / 200
Balance 20 / 20 520 / 520
Physical Exam
-
General: No Apparent Distress
HEENT: Normocephalic and Atraumatic
Respiratory: Clear to Auscultation; Negative Wheezes
Cardiac: Regular Rhythm and S1/S2
GI: Soft and Nontender
Genito-urinary: No Costovertebral Tender
Neuro: AO x 3
Hematologic / Lymphatic: No Lymphadenopathy
Psych: Calm
Data Reviewed
-
Total Time Spent with Patient (in minutes): 42
Labs: Labs Reviewed by me
[2025-08-28 14:45] VITALS: BP 82/37
[2025-08-28 14:58] VITALS: BP 90/43
[2025-08-28] MEDS: NSS 1000 IV (16:04)
[2025-08-28] MEDS: CRESTOR 10 MG PO (16:55)
[2025-08-28] MEDS: REMOVE LIDOCAINE PATCH 2 PATCH REMOVE (20:09)
[2025-08-28] MEDS: MELATONIN 5 MG PO (21:17)
[2025-08-28 23:44] VITALS: BP 98/44
[2025-08-29] MEDS: STERILE WATER FOR INJECTION 10 ML IV ×4 (04:05→23:06)
[2025-08-29] MEDS: MAXIPIME 1000 MG IV ×4 (04:05→23:06)
[2025-08-29] MEDS: CILOXAN 0.3% OPHTHALMIC SOLUTION 2 DROP RIGHT EYE ×6 (04:06→23:06)
[2025-08-29] MEDS: ROXICODONE 5 MG PO ×3 (05:46→23:04)
[2025-08-29 07:00] VITALS: BP 93/37
[2025-08-29] MEDS: TYLENOL 1000 MG PO ×3 (07:15→23:04)
[2025-08-29] MEDS: LIDOCAINE 4% PATCH 2 PATCH TOPICAL (07:16)
[2025-08-29 07:25] LABS: Hematocrit 28.4 % (37.0-47.0); Hemoglobin 9.9 g/dL (12.0-16.0); Mean Corp Hgb Conc. 34.9 g/dL (33.0-37.0); Mean Corpuscular Volume 90.7 fL (81.0-99.0); Platelet Count 77 10^3/uL (130-400); Red Cell Dist. Width 17.6 % (11.5-14.5)
[2025-08-29 07:32] LABS: Blood Urea Nitrogen 8 mg/dl (7-17); Calcium 8.1 mg/dl (8.4-10.2); Carbon Dioxide 24 mmol/L (22-30); Chloride 106 mmol/L (98-107); Estimated Creatinine Clearance 57 ml/min; Glucose 89 mg/dl (70-99); Potassium 3.6 mmol/L (3.5-5.1); Sodium 133 mmol/L (135-145); eGFR > 60.00
[2025-08-29] MEDS: BenGay-Like 1 APPLIC TOPICAL ×3 (10:12→23:05)
[2025-08-29] MEDS: CARDIZEM CD 180 MG PO (10:13)
[2025-08-29] MEDS: ELIQUIS 2.5 MG PO ×2 (10:13→20:23)
[2025-08-29] MEDS: FLOMAX 0.4 MG PO (10:13)
[2025-08-29] MEDS: LOPRESSOR 25 MG PO ×2 (10:13→20:23)
[2025-08-29] MEDS: PROTONIX 40 MG PO (10:14)
[2025-08-29] MEDS: ZOLOFT 25 MG PO (10:14)
[2025-08-29] MEDS: MIRALAX 17 GRAMS PO ×2 (10:14→20:23)
[2025-08-29] MEDS: VIBRAMYCIN 100 MG PO ×2 (10:14→20:22)
--- NOTE | 2025-08-29 11:49 | W.PN.HOSP.TC ---
Today's Communication/Plan
-
Lawall brace request
continue iv Abx
Assessment / Plan
Assessment / Plan
Assessment:
Pneumonia
- RLL
- continue Cefepime/Doxy, day 3/7 (noted procal negative but will treat given recent hospitalization)
- continue IS/Acapella
- supportive care
UTI
- CT: Mild diffuse urinary bladder wall thickening suggesting ACUTE CYSTITIS
- Culture negative
- continue Cefepime, day 3/7
Parox A. Fib
- continue BB/CCB/Eliquis
Cirrhosis, unclear etiology
- splenomegaly, severe portal hypertension, Paraesophageal varices around distal esophagus seen on CT imaging
- continue BB
- ammonia negative
- hepatitis panels
- GI signed off
Severe opioid induced constipation
- enema/bowel regimen per GI with successful BMs
Anemia, macrocytic
Thrombocytopenia
- suspect chronic
Small hiatal hernia, mild circumferential wall thickening
Type 2 DM
- A1c 6.4%
Essential HTN
- ARB/BB
Hyponatremia
- monitor
- TSH normal
Ambulatory dysfunction
- PT/OT - SNF
HLD - statin
Chronic vertebral body endplate fractures of L3
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
- scheduled Tylenol and lidocaine patches
- prn pain meds
- Lawall brace requested
DVT ppx: Eliquis
Code: DNR/DNI
Anticipated Discharge: Within 24 hours
Subjective/Interval History
-
Date of Service: August 29, 2025
No no complaints at present
pain controlled with current regimen
Objective Data
-
Labs:
Laboratory Results
08/29/25
05:24
WBC 4.1 L
Hgb 9.9 L
Hct 28.4 L
Plt Count 77 L
Sodium 133 L
Potassium 3.6
Chloride 106
Carbon Dioxide 24
BUN 8
Creatinine 0.7
Glucose 89
Calcium 8.1 L
Vital Signs:
Vital Signs
Temp Pulse Resp BP Pulse Ox
97.9 F 64 14 123/45 95
08/29/25 07:00 08/29/25 10:13 08/29/25 07:00 08/29/25 10:13 08/29/25 07:00
I&O
08/28/25 08/29/25 08/30/25
06:59 06:59 06:59
Intake Total 720 / 720 1760 / 1760
Output Total 200 / 200 1000 / 1000
Balance 520 / 520 760 / 760
Physical Exam
-
General: No Apparent Distress
HEENT: Normocephalic and Atraumatic
Respiratory: Negative Wheezes
Cardiac: Regular Rhythm and S1/S2
GI: Soft
Genito-urinary: No Costovertebral Tender
Neuro: AO x 3
Psych: Calm
Data Reviewed
-
Total Time Spent with Patient (in minutes): 41
Labs: Labs Reviewed by me
[2025-08-29 15:00] VITALS: BP 103/46
[2025-08-29] MEDS: CRESTOR 10 MG PO (18:02)
[2025-08-29 18:38] VITALS: BP 105/43; BP 82/38; BP 90/36; PULSE 60; PULSE 64; PULSE 66
--- NOTE | 2025-08-29 18:41 | PTCARENOTE ---
Pt continues to have positive orthostatic vital signs with BP dropping to 82/38 HR 64 upon standing. Pt does report slight dizziness upon standing. Dr. Miguelina nicolas.
[2025-08-29 19:50] VITALS: BP 116/65
[2025-08-29] MEDS: NSS 1000 IV (20:20)
[2025-08-29] MEDS: REMOVE LIDOCAINE PATCH REMOVE (20:22)
[2025-08-29] MEDS: MELATONIN 5 MG PO (23:04)
[2025-08-29 23:44] VITALS: BP 96/53
[2025-08-30] VITALS (7 sets, daily range): BP systolic 93–183; BP diastolic 43–94; PULSE 61–71
[2025-08-30] MEDS: STERILE WATER FOR INJECTION 10 ML IV ×4 (03:52→21:08)
[2025-08-30] MEDS: MAXIPIME 1000 MG IV ×4 (03:52→21:08)
[2025-08-30] MEDS: CILOXAN 0.3% OPHTHALMIC SOLUTION 2 DROP RIGHT EYE ×5 (03:52→20:58)
[2025-08-30] MEDS: ROXICODONE 5 MG PO ×2 (06:29→12:30)
[2025-08-30 08:47] LABS: Blood Urea Nitrogen 10 mg/dl (7-17); Calcium 8.1 mg/dl (8.4-10.2); Carbon Dioxide 21 mmol/L (22-30); Chloride 107 mmol/L (98-107); Estimated Creatinine Clearance 66 ml/min; Glucose 82 mg/dl (70-99); Potassium 3.6 mmol/L (3.5-5.1); Sodium 133 mmol/L (135-145); eGFR > 60.00
[2025-08-30 08:58] LABS: Hematocrit 29.9 % (37.0-47.0); Hemoglobin 10.5 g/dL (12.0-16.0); Mean Corp Hgb Conc. 35.1 g/dL (33.0-37.0); Mean Corpuscular Volume 92.6 fL (81.0-99.0); Platelet Count 74 10^3/uL (130-400); Red Cell Dist. Width 17.2 % (11.5-14.5)
[2025-08-30] MEDS: CARDIZEM CD PO (09:36)
[2025-08-30] MEDS: BenGay-Like 1 APPLIC TOPICAL ×3 (09:42→21:08)
[2025-08-30] MEDS: LOPRESSOR 25 MG PO ×2 (09:43→21:06)
[2025-08-30] MEDS: FLOMAX 0.4 MG PO (09:43)
[2025-08-30] MEDS: TYLENOL 1000 MG PO ×3 (09:43→21:11)
[2025-08-30] MEDS: PROTONIX 40 MG PO (09:43)
[2025-08-30] MEDS: VIBRAMYCIN 100 MG PO ×2 (09:43→20:59)
[2025-08-30] MEDS: ELIQUIS 2.5 MG PO ×2 (09:43→21:01)
[2025-08-30] MEDS: ZOLOFT 25 MG PO (09:44)
[2025-08-30] MEDS: MIRALAX PO ×2 (09:45→21:07)
[2025-08-30] MEDS: LIDOCAINE 4% PATCH 2 PATCH TOPICAL (09:46)
[2025-08-30] MEDS: CARDIZEM CD 120 MG PO (09:50)
[2025-08-30 10:30] LABS: Vitamin D, 25-OH*** 34.1 ng/mL (30-80)
--- NOTE | 2025-08-30 10:36 | W.PN.HOSP.TC ---
Today's Communication/Plan
-
reduce CCB to 120mg daily; continue BB (off ARB)
monitor BP/Orthostasis
Medically stable pending placement
Assessment / Plan
Assessment / Plan
Assessment:
Pneumonia
- RLL
- continue Cefepime/Doxy, day 4/7 (noted procal negative but will treat given recent hospitalization)
- continue IS/Acapella
- supportive care
UTI
- CT: Mild diffuse urinary bladder wall thickening suggesting ACUTE CYSTITIS
- Culture negative
- continue Cefepime, day 4/7
Parox A. Fib
- continue BB/CCB/Eliquis
Cirrhosis, unclear etiology
- splenomegaly, severe portal hypertension, Paraesophageal varices around distal esophagus seen on CT imaging
- continue BB
- ammonia negative
- hepatitis panels
- GI signed off
Severe opioid induced constipation
- enema/bowel regimen per GI with successful BMs
Anemia, macrocytic
Thrombocytopenia
- suspect chronic
Small hiatal hernia, mild circumferential wall thickening
Type 2 DM
- A1c 6.4%
Essential HTN
- stopped ARB and reduced CCB due to orthostasis
- continue BB
Hyponatremia
- monitor
- TSH normal
Ambulatory dysfunction
- PT/OT - SNF
HLD - statin
Chronic vertebral body endplate fractures of L3
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
- scheduled Tylenol and lidocaine patches
- prn pain meds
- Lawall brace available for therapy/OOB
- heat pad
DVT ppx: Eliquis
Code: DNR/DNI
Anticipated Discharge: Within 24 hours
Subjective/Interval History
-
Date of Service: August 30, 2025
anxious over feeling like someone mentioned she had a tumor, reassured her that we have no such diagnosis at present
Objective Data
-
Labs:
Laboratory Results
08/30/25
07:55
WBC 4.0 L
Hgb 10.5 L
Hct 29.9 L
Plt Count 74 L
Sodium 133 L
Potassium 3.6
Chloride 107
Carbon Dioxide 21 L
BUN 10
Creatinine 0.6
Glucose 82
Calcium 8.1 L
Vital Signs:
Vital Signs
Temp Pulse Resp BP Pulse Ox
97.9 F 62 18 109/51 99
08/30/25 08:27 08/30/25 08:27 08/30/25 08:27 08/30/25 08:27 08/30/25 08:27
I&O
08/29/25 08/30/25 08/31/25
06:59 06:59 06:59
Intake Total 1760 / 1760 800 / 800
Output Total 1000 / 1000 200 / 200
Balance 760 / 760 600 / 600
Physical Exam
-
General: No Apparent Distress
HEENT: Normocephalic and Atraumatic
Respiratory: Negative Wheezes
Cardiac: Regular Rhythm and S1/S2
GI: Soft and Nontender
Neuro: AO x 3
Psych: Calm
Data Reviewed
-
Total Time Spent with Patient (in minutes): 42
Labs: Labs Reviewed by me
[2025-08-30] MEDS: ZOFRAN 4 MG IV (10:59)
--- NOTE | 2025-08-30 11:22 | CM ---
Addendum entered by Leatha Jain 08/30/25 13:21:
CM placed call to [facility] to initiate auth, spoke w/ June Lee, provided clinical information. Requesting clinicals to be faxed for review. [facility] faxed clinicals to [phone]
Pending ref # [id number]
Original Note:
Chart reviewed. Plan for SNF at d/c. [facility] accepted, bed is available for patient pending auth approval
Per hospitalist, patient stable if bed available and auth is approved
TT therapy for updated PT and OT evaluations. Will initiate auth once updated evaluations are completed
Plan: [facility] tomorrow, pending auth approval
--- NOTE | 2025-08-30 16:22 | PN.CDI ---
CDI
- -
CDI:
Physician Documentation Request
Admit Date: 08/27/25 12:41
Dear Doctor Miguelina,
Please review the following and provide your response in the progress notes.
Clinical Indicators:
Height: 5 ft 11 in
Weight:135 lb 6oz
BMI:18.9
Clinical indicators: GI consult ' Currently she has some poor appetite and decreased oral intake. She states that she has not been able to eat much. She states she feels very full. ...'
If possible, please provide an associated diagnosis related to the abnormal BMI, such as:
BMI < or = to 19
Underweight
Cachectic
- Other
Use of terms such as suspected, likely, concern for, or probable (associated with a specific diagnosis that is being evaluated, monitored, or treated as if it exists) are acceptable and can be coded in the inpatient setting, when documented at the
time of discharge.
Thank you,
Shelley Saxena RN
CDI Specialist
[place] [facility]
Please use your independent medical judgment in providing your response.
--- NOTE | 2025-08-30 16:25 | PN.CDI ---
CDI
- -
CDI:
Physician Documentation Request
Admit Date: 08/27/25 12:41
Dear Doctor Miguelina,
Please review the following and provide your response in the progress notes.
Clinical Indicators:
Pt admitted with UTI/PNA/New Cirrhosis /Portal HTN
Progress notes 08/29-08/30, ' Anemia, macrocytic Thrombocytopenia suspect chronic...'
Trended below are pts blood counts
Laboratory Tests
08/27/25 08/28/25 08/29/25
08:06 06:41 05:24
WBC 3.4 L 4.1 L 4.1 L
Hgb 10.6 L 10.8 L 9.9 L
Hct 31.7 L 32.2 L 28.4 L
Plt Count 72 L 68 L 77 L
08/30/25
07:55
WBC 4.0 L
Hgb 10.5 L
Hct 29.9 L
Plt Count 74 L
Please provide a diagnosis for the above Laboratory findings:
Pancytopenia
Thrombocytopenia/Anemia only
Other ( please specify)
Use of terms such as suspected, likely, concern for, or probable (associated with a specific diagnosis that is being evaluated, monitored, or treated as if it exists) are acceptable and can be coded in the inpatient setting, when documented at the
time of discharge.
Thank you,
Shelley Saxena RN
CDI Specialist
[place] [facility]
Please use your independent medical judgment in providing your response.
--- NOTE | 2025-08-30 16:29 | PN.CDI ---
CDI
- -
CDI:
Physician Documentation Request
Admit Date: 08/27/25 12:41
Dear Doctor Miguelina,
Please review the following and provide your response in the progress notes.
Clinical Indicators:
Pt admitted with UTI/PNA/New Cirrhosis /Portal HTN
Documented per ED,' Family reports when they left the [facility] they were informed that she has pneumonia and was given 1 dose of Levaquin ...'
Progress notes 08-27-08/30,' Pneumonia RLL continue Cefepime/Doxy,...continue IS/Acapella supportive care...'
Selected Entries
08/27/25
00:25
Oral diet type IDDSI 6 Soft &
Bite Sized
Based on the above, could you clarify in the Progress Notes further specificity regarding the known, suspected or likely type of pneumonia you are treating (recognizing the specific organism may not be known)?
Aspiration Pneumonia - indicate substance such as food or vomitus, oils or other solids or liquids
Staph Pneumonia - indicate if MRSA or MSSA
Strep Pneumonia - indicate if strep B, strep pneumoniae or other type
Gram negative Pneumonia - indicate if Pseudomonas, Klebsiella or other
Other type ( please specify)
Use of terms such as suspected, likely, concern for, or probable (associated with a specific diagnosis that is being evaluated, monitored, or treated as if it exists) are acceptable and can be coded in the inpatient setting, when documented at the
time of discharge.
Thank you,
Shelley Saxena RN
CDI Specialist
[place] [facility]
Please use your independent medical judgment in providing your response.
[2025-08-30] MEDS: CRESTOR 10 MG PO (17:27)
[2025-08-30] MEDS: REMOVE LIDOCAINE PATCH 2 PATCH REMOVE (20:59)
[2025-08-30] MEDS: MELATONIN 5 MG PO (21:08)
[2025-08-31] MEDS: CILOXAN 0.3% OPHTHALMIC SOLUTION 2 DROP RIGHT EYE ×7 (00:23→23:12)
[2025-08-31] MEDS: ROXICODONE 2.5 MG PO (00:28)
[2025-08-31 00:55] VITALS: BP 117/52
[2025-08-31] MEDS: MAXIPIME 1000 MG IV ×4 (04:39→21:26)
[2025-08-31] MEDS: STERILE WATER FOR INJECTION 10 ML IV ×4 (04:39→21:26)
[2025-08-31 05:51] LABS: Hematocrit 29.1 % (37.0-47.0); Hemoglobin 10.4 g/dL (12.0-16.0); Mean Corp Hgb Conc. 35.7 g/dL (33.0-37.0); Mean Corpuscular Volume 90.4 fL (81.0-99.0); Platelet Count 78 10^3/uL (130-400); Red Cell Dist. Width 17.2 % (11.5-14.5)
[2025-08-31 06:04] LABS: Blood Urea Nitrogen 11 mg/dl (7-17); Calcium 8.4 mg/dl (8.4-10.2); Carbon Dioxide 19 mmol/L (22-30); Chloride 107 mmol/L (98-107); Estimated Creatinine Clearance 66 ml/min; Glucose 67 mg/dl (70-99); Potassium 3.6 mmol/L (3.5-5.1); Sodium 134 mmol/L (135-145); eGFR > 60.00
--- NOTE | 2025-08-31 06:14 | PTCARENOTE ---
Throughout shift, patient continually sobbing and excessively babbling/talking to self. When asked what pt was crying about, she would continually state she didn't know and would refuse to elaborate despite further questioning. Patient also had
bouts of agitation when she would soil the bed and herself, yelling at staff to 'hurry up'. CONTINUOUS TOWEL ROLLER made aware of patient's erratic behavior, psych consult ordered. Pt currently resting in bed without any complaints.
[2025-08-31 07:19] LABS: Glucose - Point of Care 88 mg/dl (70-99)
--- NOTE | 2025-08-31 07:33 | PTCARENOTE ---
BP this AM is 87/65. Glucose on labs 67. Treated with OJ. Accu check done to recheck- 88. Patient continues to be restless and forgetful. No complaints of dizziness/lightheadedness. made aware.
[2025-08-31 07:35] VITALS: BP 87/65
--- NOTE | 2025-08-31 08:29 | CM ---
TC from [facility] re skilled authorization
Approved start date 08/30/25, NRD 09/01/25
Reference# [id number]
Auth has not been generated yet
updates to school coordinator Luz Narvaez- fax# [phone]
--- NOTE | 2025-08-31 08:35 | W.PN.HOSP.TC ---
Today's Communication/Plan
-
psych evaluation for ongoing depression/tearfulness; noted that [facility] did reduce Zoloft dose
de-escalate pain control to Tramadol - Oxy too sedating and possibly contributing to hypotension; also stopped CCB and reduced BB - patient remains in sinus rhythm.
hold off DC with hypotension
monitor vitals, may need IVF later
d/w family
Assessment / Plan
Assessment / Plan
Assessment:
Pneumonia, (other type; community acquired), no evidence of staph,strep,aspiration
- RLL
- continue Cefepime/Doxy, day 5/7 (noted procal negative but will treat given recent hospitalization)
- continue IS/Acapella
- supportive care
UTI
- CT: Mild diffuse urinary bladder wall thickening suggesting ACUTE CYSTITIS
- Culture negative
- completed 5 days Cefepime course
Parox A. Fib
- continue BB/Eliquis
Cirrhosis, unclear etiology
- splenomegaly, severe portal hypertension, Paraesophageal varices around distal esophagus seen on CT imaging
- continue BB - reduced dose
- ammonia negative
- hepatitis panels
- GI signed off
Severe opioid induced constipation
- enema/bowel regimen per GI with successful BMs
pancytopenia
- chronic per records
Small hiatal hernia, mild circumferential wall thickening
Type 2 DM
- A1c 6.4%
Essential HTN
- stopped ARB/CCB due to orthostasis
- continue BB - reduced dose
Hyponatremia
- monitor
- TSH normal
Ambulatory dysfunction
- PT/OT - SNF
HLD - statin
Chronic vertebral body endplate fractures of L3
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
acute on chronic back pain
- scheduled Tylenol and lidocaine patches
- prn pain meds (stop oxycodone, start Tramadol)
- Lawall brace available for therapy/OOB
- heat pad
- PT/OT
Underweight status
Chronic depression
- recently Zoloft was reduced from 50mg to 25mg at [facility]
- psychiatry consult
DVT ppx: Eliquis
Code: DNR/DNI
Anticipated Discharge: > 48 hours
Subjective/Interval History
-
Date of Service: August 31, 2025
overnight with anxiety/tearfulness and reports of back pain
received Oxy
AM with hypotension
Objective Data
-
Labs:
Laboratory Results
08/31/25
05:25
WBC 3.6 L
Hgb 10.4 L
Hct 29.1 L
Plt Count 78 L
Sodium 134 L
Potassium 3.6
Chloride 107
Carbon Dioxide 19 L
BUN 11
Creatinine 0.6
Glucose 67 L
Calcium 8.4
Vital Signs:
Vital Signs
Temp Pulse Resp BP Pulse Ox
97.7 F 66 18 127/58 99
08/30/25 23:28 08/30/25 23:28 08/30/25 23:28 08/30/25 23:28 08/30/25 23:28
I&O
08/30/25 08/31/25 09/01/25
06:59 06:59 06:59
Intake Total 800 / 800 360 / 360
Output Total 200 / 200 240 / 240
Balance 600 / 600 120 / 120
Physical Exam
-
General: No Apparent Distress
HEENT: Normocephalic and Atraumatic
Respiratory: Negative Wheezes
Cardiac: Regular Rhythm and S1/S2
GI: Soft and Nontender
Musculoskeletal: No Edema
Neuro: AO x 3
Psych: Calm
Data Reviewed
-
Total Time Spent with Patient (in minutes): 42
Labs: Labs Reviewed by me
[2025-08-31] MEDS: CARDIZEM CD PO (09:09)
[2025-08-31] MEDS: LOPRESSOR PO (09:10)
[2025-08-31] MEDS: MIRALAX PO ×2 (09:12→20:02)
[2025-08-31] MEDS: BenGay-Like 1 APPLIC TOPICAL ×3 (09:16→21:25)
[2025-08-31] MEDS: TYLENOL 1000 MG PO ×3 (09:17→21:25)
[2025-08-31] MEDS: ELIQUIS 2.5 MG PO ×2 (09:17→20:01)
[2025-08-31] MEDS: FLOMAX 0.4 MG PO (09:17)
[2025-08-31] MEDS: LIDOCAINE 4% PATCH 2 PATCH TOPICAL (09:17)
[2025-08-31] MEDS: PROTONIX 40 MG PO (09:17)
[2025-08-31] MEDS: VIBRAMYCIN 100 MG PO ×2 (09:17→20:02)
[2025-08-31] MEDS: ZOLOFT 25 MG PO (09:17)
[2025-08-31] MEDS: ULTRAM 50 MG PO (09:26)
--- NOTE | 2025-08-31 10:23 | CM ---
Plan is for patient to admit to [facility]. Discussed w/ hospitalist, patient will remain today, will re evaluate discharge tomorrow. Patient has worsening pain and lower BP. Psych consulted.
Auth approved (08/30-09/01). Auth ID [id number]. Can admit tomorrow but will need new authorization if patient does not admit tomorrow as last coverage is 09/01.
Updated [facility] director
Plan: [facility], hopefully tomorrow
[2025-08-31 12:04] VITALS: BP 139/56
--- NOTE | 2025-08-31 13:11 | CON.MD ---
Addendum entered and electronically signed by Santo García MD 08/31/25 13:22:
needs vit d repletion b12 folate and tsh are ok
Original Note:
Consultation - Medical
-
patient is an 84 year old woman consult ordered for depression. this consult is being done today . spoke with nursing patient son at [facility]. patient recently came up from [facility] she had been living. [place] close to
her daughters. she has hx of depression since h in 2021. she was placed on zoloft 50 mg recently cut to 25 for fear it was worsening her memory. of note patient has bloodwork that suggests significant etoh intake. she says sometimes she will
drink three glass of wine w her spaghetti. she denies abuse of etoh and son was unaware although he does not see her a lot as he lives in [place]. she says sleep was ok til recent bout or urosepsis. appetite had been good but currently c.o severe
back pain interfering w sleep and appetite. patient very tearful at times. she denies suicidality. there is nothing to suggest psychosis
past psych hx see above
medical recent urosepsis admitted this time for weakness and fatigue. she was rx for a number of other dx lately including pneumonia neuropathy and also noted were portal l hypertension varices splenomegaly in workup osteoarthritis on back
xrays c/o severe back pain w hx sciatica. hx htn hld a fib chronic tcp yersinia infection opiate ind constipation anemia hiatal hernia niddm on admit sodium decreased now 134
fh non contributory
substance abuse suspicion alcohol abuse see above
social see above four children four grands eight great grands worked outside home when younger hobbies including designing dolls. here to live near d's of 50 + yrs
mse alert ox3 cooperative pleasant knew president reasonable historian in between sobs. speech and thought process ok no psychosis depressed denies si ave intell insight judgment fair
dx major depression moderate severity adjustment disorder w depression bereavement r/o etoh abuse
plan discussed w pt and son use of cymbalta instead of zoloft as it will help w pain start with 20mg side effect risks vs kin discussed. add gabapentin 100 mg bid for neuropathic back pain. ativan for etoh wd. need to watch for etoh wd. check b12
folate vit thryoids if not already done. will follow
[2025-08-31 15:30] VITALS: BP 81/55
[2025-08-31] MEDS: CRESTOR 10 MG PO (17:10)
[2025-08-31 18:09] VITALS: BP 138/48
[2025-08-31] MEDS: NEURONTIN 100 MG PO (20:01)
[2025-08-31] MEDS: LOPRESSOR 12.5 MG PO (20:01)
[2025-08-31] MEDS: REMOVE LIDOCAINE PATCH 2 PATCH REMOVE (20:01)
[2025-08-31] MEDS: MELATONIN 5 MG PO (21:25)
[2025-08-31 23:55] VITALS: BP 117/52
[2025-09-01] MEDS: MAXIPIME 1000 MG IV ×4 (04:26→21:50)
[2025-09-01] MEDS: STERILE WATER FOR INJECTION 10 ML IV ×4 (04:27→21:51)
[2025-09-01] MEDS: CILOXAN 0.3% OPHTHALMIC SOLUTION 2 DROP RIGHT EYE ×5 (04:29→21:46)
--- NOTE | 2025-09-01 04:37 | PTCARENOTE ---
Patient continually talking to herself throughout the night, crying out, and babbling. Patient denies pain. Pulled gown off multiple times. When patient asked why she keeps removing her gown, she stated, 'when I wear this gown it makes me talk
gibberish'. Continuing to babble and cry, emotional support provided to patient. Plan of care ongoing.
[2025-09-01 07:30] VITALS: BP 124/82; BP 90/58; BP 99/70; PULSE 85; PULSE 90; PULSE 97
[2025-09-01 07:52] LABS: Hematocrit 30.0 % (37.0-47.0); Hemoglobin 10.4 g/dL (12.0-16.0); Mean Corp Hgb Conc. 34.7 g/dL (33.0-37.0); Mean Corpuscular Volume 90.6 fL (81.0-99.0); Platelet Count 84 10^3/uL (130-400); Red Cell Dist. Width 17.7 % (11.5-14.5)
[2025-09-01 08:11] LABS: Blood Urea Nitrogen 10 mg/dl (7-17); Calcium 8.6 mg/dl (8.4-10.2); Carbon Dioxide 22 mmol/L (22-30); Chloride 105 mmol/L (98-107); Estimated Creatinine Clearance 66 ml/min; Glucose 77 mg/dl (70-99); Potassium 3.5 mmol/L (3.5-5.1); Sodium 135 mmol/L (135-145); eGFR > 60.00
--- NOTE | 2025-09-01 09:35 | W.PN.HOSP.TC ---
Today's Communication/Plan
-
see bold
Assessment / Plan
Assessment / Plan
Assessment:
Pneumonia, (other type; community acquired), no evidence of staph,strep,aspiration
- RLL
- continue Cefepime/Doxy, day 6/7 (noted procal negative but will treat given recent hospitalization)
- continue IS/Acapella
- supportive care
Altered mental status
- Daughter states she noticed it 08/31 evening as well as 09/01 morning
- Suspect secondary to hospital delirium versus from cognitive impairment/mild dementia
- Psychiatry already following, TSH normal, will check B12
- Monitor for now, provide supportive care
UTI
- CT: Mild diffuse urinary bladder wall thickening suggesting ACUTE CYSTITIS
- Culture negative
- completed 5 days Cefepime course
Parox A. Fib
- continue BB/Eliquis
Cirrhosis, unclear etiology
- splenomegaly, severe portal hypertension, Paraesophageal varices around distal esophagus seen on CT imaging
- continue BB - reduced dose
- ammonia negative
- hepatitis panel neg
- GI signed off
Severe opioid induced constipation
- enema/bowel regimen per GI with successful BMs
pancytopenia
- chronic per records
Small hiatal hernia, mild circumferential wall thickening
Type 2 DM
- A1c 6.4%
History of essential hypertension, now with intermittent hypotension
- stopped ARB/CCB due to orthostasis
- Blood pressure improved with stopping diltiazem and reducing metoprolol dose
- Denies lightheadedness or dizziness
Hyponatremia
- resolved
- TSH normal
Ambulatory dysfunction
- PT/OT - rec STR, plan for [facility]
HLD - statin
Chronic vertebral body endplate fractures of L3
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
acute on chronic back pain
- scheduled Tylenol and lidocaine patches
- prn pain meds (stopped oxycodone, started Tramadol)
- Lawall brace available for therapy/OOB
- heat pad
- PT/OT - rec STR, plan for [facility]
Underweight status
Chronic depression
- recently Zoloft was reduced from 50mg to 25mg at [facility]
- Appreciate psychiatry input, Zoloft discontinued, started on Cymbalta and gabapentin to also help with pain
DVT ppx: Eliquis
Code: DNR/DNI
Updated son and daughter on phone 09/01
Total time spent to see the patient on the floor, examine the patient, review data and lab results, discuss treatment plan with patient, nursing staff around 50 minutes.
Physical Exam
General: No acute distress
HEENT: Normocephalic, Atraumatic, EOMI, MMM
Respiratory: Clear to Auscultation bilaterally
Cardiac: Normal S1/S2, Regular Rate and Rhythm
GI: Soft, Nontender, Nondistended, Normal Bowel Sounds
Extremities: No Clubbing, Cyanosis
Neuro: Confusion noted
Psych: Calm, Cooperative
Anticipated Discharge: 24 - 48 hours
Subjective/Interval History
-
Date of Service: September 01, 2025
Patient was confused last night and this morning. She complains of headache and lower back pain. Denies lightheadedness, dizziness. Denies chest pain. No fever, no vomiting.
Objective Data
-
Labs:
Laboratory Results
09/01/25
07:15
WBC 3.3 L
Hgb 10.4 L
Hct 30.0 L
Plt Count 84 L
Sodium 135
Potassium 3.5
Chloride 105
Carbon Dioxide 22
BUN 10
Creatinine 0.6
Glucose 77
Calcium 8.6
Vital Signs:
Vital Signs
Temp Pulse Resp BP Pulse Ox
97.8 F 79 16 90/58 97
09/01/25 07:30 09/01/25 07:30 09/01/25 07:30 09/01/25 07:30 09/01/25 07:30
I&O
08/31/25 09/01/25 09/02/25
06:59 06:59 06:59
Intake Total 360 / 360 1140 / 1140
Output Total 240 / 240
Balance 120 / 120 1140 / 1140
[2025-09-01] MEDS: MIRALAX PO (09:39)
[2025-09-01] MEDS: BenGay-Like 1 APPLIC TOPICAL ×3 (09:39→21:55)
[2025-09-01] MEDS: PROTONIX 40 MG PO (09:40)
[2025-09-01] MEDS: LIDOCAINE 4% PATCH 2 PATCH TOPICAL (09:40)
[2025-09-01] MEDS: CYMBALTA DELAYED RELEASE 20 MG PO (09:41)
[2025-09-01] MEDS: LOPRESSOR PO (09:41)
[2025-09-01] MEDS: ELIQUIS 2.5 MG PO ×2 (09:42→21:46)
[2025-09-01] MEDS: TYLENOL 1000 MG PO ×3 (09:42→21:50)
[2025-09-01] MEDS: NEURONTIN 100 MG PO ×2 (09:42→21:46)
[2025-09-01] MEDS: VIBRAMYCIN 100 MG PO ×2 (09:42→21:46)
[2025-09-01] MEDS: FLOMAX 0.4 MG PO (09:43)
[2025-09-01] MEDS: FLUSH (NSS) 1 FLUSH IV ×2 (09:43→16:22)
[2025-09-01 11:31] VITALS: BMI 18.9
[2025-09-01 15:38] VITALS: BP 105/89
--- NOTE | 2025-09-01 16:17 | PTCARENOTE ---
Pt AAO x3; forgetful; anxious/tearful; occ 'rocks' self when OOB in chair; restless at times. Continuously removes hospital gown; stated she 'Can't wear it because the people here talk with accents'. Pt currently wearing clothes bought in by
family. CARVAJAL; OOB to chair; ambulatory to BR with assist x2/walker,; unsteady w/OOB activity. VSS. On room air- pulse ox 96%, no SOB noted. Valente large, soft, melony :PO. Voids in BR without difficulty; (+) occ stress incont. Knee high tubigrips in
place. Resting in bed at present, no c/o. Will continue to monitor.
[2025-09-01] MEDS: CRESTOR 10 MG PO (17:40)
[2025-09-01] MEDS: ULTRAM 50 MG PO (21:49)
[2025-09-01] MEDS: MIRALAX 17 GRAMS PO (21:50)
[2025-09-01] MEDS: MELATONIN 5 MG PO (21:50)
[2025-09-01] MEDS: REMOVE LIDOCAINE PATCH 2 PATCH REMOVE (21:53)
[2025-09-01] MEDS: LOPRESSOR 12.5 MG PO (21:53)
--- NOTE | 2025-09-01 22:59 | W.PN.UPDATE ---
Update Note
Progress Note Update
pt seen for assessment. Family visiting, concerned that she is not at her baseine, had been doing very well up until two weeks ago. the mention that pt is preoccupied with the snap on her nightgown. On my exam pt explained that seh thinks there is
cocaine or heroin in it, 'but I don't want to get anyone in trouble.' Pleasant, no complaints, but clearly some confusion
[2025-09-01 23:18] VITALS: BP 142/61
[2025-09-02] MEDS: CILOXAN 0.3% OPHTHALMIC SOLUTION 2 DROP RIGHT EYE ×6 (00:55→21:13)
[2025-09-02] MEDS: MAXIPIME 1000 MG IV (04:43)
[2025-09-02] MEDS: STERILE WATER FOR INJECTION 10 ML IV (04:43)
[2025-09-02 07:17] LABS: Blood Urea Nitrogen 10 mg/dl (7-17); Calcium 8.6 mg/dl (8.4-10.2); Carbon Dioxide 22 mmol/L (22-30); Chloride 106 mmol/L (98-107); Estimated Creatinine Clearance 66 ml/min; Glucose 75 mg/dl (70-99); Potassium 3.5 mmol/L (3.5-5.1); Sodium 133 mmol/L (135-145); eGFR > 60.00
[2025-09-02 07:51] VITALS: BP 111/64
[2025-09-02 07:57] LABS: Hematocrit 28.7 % (37.0-47.0); Hemoglobin 9.8 g/dL (12.0-16.0); Mean Corp Hgb Conc. 34.1 g/dL (33.0-37.0); Mean Corpuscular Volume 94.4 fL (81.0-99.0); Platelet Count 78 10^3/uL (130-400); Red Cell Dist. Width 17.5 % (11.5-14.5)
[2025-09-02 08:07] LABS: Vitamin B12 818 pg/ml (239-931)
[2025-09-02] MEDS: CYMBALTA DELAYED RELEASE 20 MG PO (08:32)
[2025-09-02] MEDS: ELIQUIS 2.5 MG PO ×2 (08:32→21:13)
[2025-09-02] MEDS: LOPRESSOR 12.5 MG PO ×2 (08:32→21:14)
[2025-09-02] MEDS: TYLENOL 1000 MG PO (08:32)
[2025-09-02] MEDS: BenGay-Like 1 APPLIC TOPICAL ×3 (08:32→21:13)
[2025-09-02] MEDS: LIDOCAINE 4% PATCH TOPICAL ×2 (08:32→08:41)
[2025-09-02] MEDS: VIBRAMYCIN 100 MG PO (08:32)
[2025-09-02] MEDS: NEURONTIN 100 MG PO ×2 (08:32→21:13)
[2025-09-02] MEDS: PROTONIX 40 MG PO (08:32)
[2025-09-02] MEDS: FLOMAX 0.4 MG PO (08:32)
[2025-09-02] MEDS: MIRALAX PO (08:33)
[2025-09-02] MEDS: ROCEPHIN 1000 MG IV (11:00)
--- NOTE | 2025-09-02 12:13 | PTOTSP ---
Speech Therapy Evaluation:
Pt with acute risk factor of dysphagia (confusion). At bedside, oral phase mildly prolonged, though question if related to dislike of PO. No overt s/sx of aspiration, however cannot r/o pharyngeal component given mild RLL PNA. Despite this, pt
without dysphagia hx, on room air, and procalcitonin WNL.
Recommend:
1. Continue IDDSI 6 (soft and bite sized solids) and thin liquids
2. Meds as tolerated
3. General aspiration precautions
4. COW TESTER to follow to monitor tolerance of diet, assess candidacy for future solid upgrade, and determine if pt would benefit from instrumental assessment
--- NOTE | 2025-09-02 12:15 | W.PN.UPDATE ---
Update Note
Progress Note Update
patient seen chart reviewed. spoke with nursing and dr locke. the patient was much more interactive today. she also appeared to be in no distress. when first seen on saturday she appeared frantic and dysphoric. none of that today. she is oriented
x3 but there is still a degree of confusion. told me she had been living in [place]...the stay in [place] was was some years in duration seemed to have receded from memory. she could however carry on a conversation about her favorite country
music artists and had asked staff to tune the tv to country music. she reports she is pain free today and much of yesterday. there are a number of possible reasons for her change in mental status...??etoh ???early cognitive changes infection
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 would continue w psych meds as they are. nursing does report that she has more trouble in the evening and early early hours of the morning and is better as the day wears on.
--- NOTE | 2025-09-02 12:48 | W.PN.HOSP.TC ---
Today's Communication/Plan
-
Patient has improved a lot
Antibiotics discontinued
Patient has no back pain today-hold tramadol
Decrease the dose of Tylenol
Assessment / Plan
Assessment / Plan
84 y/o female with a recent hospitalization in [place] for sepsis and UTI and A-fib. Then transferred to SNF and discharged. Patient was then brought to [place] closer to the family. Patient was readmitted here with orthostasis and
pneumonia back pain depression and anxiety.
CT scan abdomen and pelvis-moderate hepatic cirrhosis. Severe portal hypertension with esophageal varices. Severe splenomegaly. Cholelithiasis and gallbladder distention. Small hiatal hernia. Large amount of fecal material throughout colon
suggesting constipation. Thickened endometrial. Mild diffuse urinary bladder wall thickening suggesting acute cystitis. Severe calcific atherosclerotic plaque in the abdominal aorta. Small right pleural effusion. Mild right lobe pneumonia.
Severe discogenic degenerative disease L5-S1. Chronic vertebral body endplate fracture L3.
Patient is pleasant sitting in a chair
Awake alert oriented
Cardiovascular system S1-S2 appreciated
Chest clear to auscultation
Abdomen soft and nontender
# Right lower lobe pneumonia- NOS
Speech therapy evaluation rule out aspiration
Discontinue antibiotics
IDDSI 6 diet with thin liquid
# Altered mental status noticed on evening of 1028
Likely hospital-acquired delirium
Ammonia level negative
Discontinue cefepime
Psychiatry following
# UTI
CT with diffuse urinary bladder wall thickening suggestive of acute cystitis
Completed 5 days of cefepime
Cultures negative
# Mild hyponatremia-follow. 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
# Paroxysmal atrial fibrillation-continue Eliquis and beta-blockers
# Cirrhosis- possibly from alcohol use 3 glass of wine every night
Splenomegaly, severe portal hypertension, paraesophageal varices around distal esophagus on CT imaging
Continue beta-blockers
Ammonia negative,Hepatitis panel negative, GI signed off
OP GI follow up.
# Opioid-induced constipation-resolved. Continue bowel regimen
# Pancytopenia-chronic. Outpatient hematology evaluation
# Hiatal hernia/mild circumferential wall thickening-needs EGD as outpatient
# Diabetes hemoglobin A1c 6.4
Accu-Cheks and sliding scale coverage
# Hypertension-now with intermittent hypotension-Cardizem and losartan on hold
# Hyponatremia-resolved
# Hyperlipidemia/atherosclerosis-continue statin
# Chronic vertebral body endplate fractures of L3, severe discogenic degenerative disease L5-S1 with acute on chronic back pain
Continue Tylenol, lidocaine. And gabapentin. oxycodone stopped. Tramadol started
Lawall brace for therapy and out of bed
PT OT
# Underweight with a BMI of 18
# Depression Zoloft was reduced from 50 mg to 25 mg at [place]
Psychiatry evaluation appreciated Zoloft discontinued. Patient started on Cymbalta and gabapentin
# Thickened endometrium-needs F[employer] JUSTICE evaluation as outpatient
# Per discussion with psychiatry patient was using 3 glass of wine every night prior to getting in the hospital in [place].Add Thiamine
# DVT prophylaxis-Eliquis
# DNR
D/W RN
D/W Psyche
D/W Case management
Called daughter , left a message .
Part of this note was created using voice recognition system. Occasional wrong word or��sound alike� substitutions may have inadvertently occurred due to the inherent limitations of voice recognition software. If noted kindly bring it to my
attention for correction.
Anticipated Discharge: Within 24 hours
Subjective/Interval History
-
Date of Service: September 02, 2025
Objective Data
-
Labs:
Laboratory Results
09/02/25
06:30
WBC 2.7 L
Hgb 9.8 L
Hct 28.7 L
Plt Count 78 L
Sodium 133 L
Potassium 3.5
Chloride 106
Carbon Dioxide 22
BUN 10
Creatinine 0.6
Glucose 75
Calcium 8.6
Vital Signs:
Vital Signs
Temp Pulse Resp BP Pulse Ox
97.8 F 79 16 111/64 98
09/02/25 07:51 09/02/25 07:51 09/02/25 07:51 09/02/25 07:51 09/02/25 07:51
I&O
09/01/25 09/02/25 09/03/25
06:59 06:59 06:59
Intake Total 1140 / 1140 860 / 860
Balance 1140 / 1140 860 / 860
[2025-09-02] MEDS: VITAMIN B1 100 MG PO (13:38)
--- NOTE | 2025-09-02 13:50 | CM ---
Addendum entered by Leatha Jain 09/02/25 16:22:
Received call from [facility] w/ approved auth
Approved beginning 09/03 NRD 09/07
Auth ID- [id number]
resident service coordinator is Luz Narvaez
Updated Karli w/ auth info for tomorrow
Original Note:
Discussed w/ hospitalist, patient can d/c tomorrow. Updated [facility]li, inquired about a bed tomorrow.
Patient's auth is now , last coverage day was yesterday and will not be discharging today to still use current auth
called [facility] ([phone]) to initiate new auth, spoke w/ Isa. Requested clinicals to be faxed for review
Clinicals faxed to [phone]
Pending ref # [id number]
Transport forms on chart
Updated daughter via phone. IMM reviewed, copy on chart
[facility]
Report: [phone]

Plan: [facility]
[2025-09-02 15:31] VITALS: BP 108/42
--- NOTE | 2025-09-02 16:06 | PN.CDI ---
Addendum entered and electronically signed by Abel Hernandez MD 09/03/25 07:49:
Documentation is complete at this time.
Original Note:
CDI
- -
CDI:
Physician Documentation Request
Admit Date: 08/27/25 12:41
Dear Doctor David,
Please review the following and provide your response in the progress notes.
Clinical Indicators:
Pt admitted with UTI/PNA/New Cirrhosis /Portal HTN
Progress note 09/01, 'Altered mental status Daughter states she noticed it 08/31 evening as well as 09/01 morning Suspect secondary to hospital delirium versus ing from cognitive impairment/mild dementia...'
Update note 09/01, ' pt seen for assessment. Family visiting, concerned that she is not at her baseine, had been doing very well up until two weeks ago. the mention that pt is preoccupied with the snap on her nightgown. On my exam pt explained that
she thinks there is cocaine or heroin in it, 'but I don't want to get anyone in trouble.' Pleasant, no complaints, but clearly some confusion...'
Update note 09/02, ' when first seen on Saturday she appeared frantic and dysphoric. none of that today. she is oriented x3 but there is still a degree of confusion....here are a number of possible reasons for her change in mental status...??etoh
???early cognitive changes infection medication effect (antibiotics acute care surgeon) but it seems to be improving....'
Pt care note 08/31 @ 0614,' Throughout shift, patient continually sobbing and excessively babbling/talking to self. When asked what pt was crying about, she would continually state she didn't know and would refuse to elaborate despite further
questioning. Patient also had bouts of agitation when she would soil the bed and herself, yelling at staff to 'hurry up'. CLOTH PATTERN MAKER made aware of patient's erratic behavior, psych consult ordered....'
Pt care note 09/01 @ 0437,' Patient continually talking to herself throughout the night, crying out, and babbling. Patient denies pain. Pulled gown off multiple times. When patient asked why she keeps removing her gown, she stated, 'when I wear
this gown it makes me talk gibberish'. Continuing to babble and cry..'
Based on the above, could you clarify in the Progress Notes and Discharge Summary which, if any of the following, is the most likely etiology of the confusion/altered mental status.
Multifactorial due to Metabolic Encephalopathy/ Acute hospital acquired delirium
Hospital acquired Delirium only
Other ( please specify)
Use of terms such as suspected, likely, concern for, or probable (associated with a specific diagnosis that is being evaluated, monitored, or treated as if it exists) are acceptable and can be coded in the inpatient setting, when documented at the
time of discharge.
Thank you,
Shelley Saxena RN
CDI Specialist
[employer]
Please use your independent medical judgment in providing your response.
[2025-09-02 16:30] VITALS: BP 126/95; PULSE 78; O2SAT 99
[2025-09-02] MEDS: CRESTOR 10 MG PO (17:34)
[2025-09-02] MEDS: MIRALAX 17 GRAMS PO (21:13)
[2025-09-02] MEDS: MELATONIN 5 MG PO (21:13)
[2025-09-02] MEDS: REMOVE LIDOCAINE PATCH 2 PATCH REMOVE (21:14)
[2025-09-02 23:01] VITALS: BP 120/58
[2025-09-03] MEDS: CILOXAN 0.3% OPHTHALMIC SOLUTION 2 DROP RIGHT EYE ×4 (01:23→12:15)
[2025-09-03] MEDS: TYLENOL 650 MG PO (04:39)
[2025-09-03 07:30] VITALS: BP 116/82
[2025-09-03] MEDS: CYMBALTA DELAYED RELEASE 20 MG PO (08:09)
[2025-09-03] MEDS: VITAMIN B1 100 MG PO (08:09)
[2025-09-03] MEDS: FLOMAX 0.4 MG PO (08:09)
[2025-09-03] MEDS: NEURONTIN 100 MG PO (08:09)
[2025-09-03] MEDS: PROTONIX 40 MG PO (08:09)
[2025-09-03] MEDS: LOPRESSOR 12.5 MG PO (08:09)
[2025-09-03] MEDS: ELIQUIS 2.5 MG PO (08:09)
[2025-09-03] MEDS: BenGay-Like 1 APPLIC TOPICAL (08:16)
[2025-09-03] MEDS: LIDOCAINE 4% PATCH TOPICAL (08:17)
[2025-09-03] MEDS: MIRALAX 17 GRAMS PO (08:20)
--- NOTE | 2025-09-03 11:30 | W.PN.HOSP.TC ---
Today's Communication/Plan
-
Discharge
Assessment / Plan
Assessment / Plan
84 y/o female with a recent hospitalization in [place] for sepsis and UTI and A-fib. Then transferred to SNF and discharged. Patient was then brought to [place] closer to the family. Patient was readmitted here with orthostasis and
pneumonia back pain depression and anxiety.
CT scan abdomen and pelvis-moderate hepatic cirrhosis. Severe portal hypertension with esophageal varices. Severe splenomegaly. Cholelithiasis and gallbladder distention. Small hiatal hernia. Large amount of fecal material throughout colon
suggesting constipation. Thickened endometrial. Mild diffuse urinary bladder wall thickening suggesting acute cystitis. Severe calcific atherosclerotic plaque in the abdominal aorta. Small right pleural effusion. Mild right lobe pneumonia.
Severe discogenic degenerative disease L5-S1. Chronic vertebral body endplate fracture L3.
Patient is pleasant sitting in a chair
Awake alert oriented
Cardiovascular system S1-S2 appreciated
Chest clear to auscultation
Abdomen soft and nontender
# Right lower lobe pneumonia- NOS
Speech therapy evaluation -IDDSI 6
Discontinue antibiotics
IDDSI 6 diet with thin liquid
# Altered mental status noticed on evening of 08/31
Likely hospital-acquired delirium
Ammonia level negative
Psychiatry following
# UTI
CT with diffuse urinary bladder wall thickening suggestive of acute cystitis
Completed 5 days of cefepime
Cultures negative
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
# Paroxysmal atrial fibrillation-continue Eliquis and beta-blockers
# Cirrhosis- possibly from alcohol use 3 glass of wine every night
Splenomegaly, severe portal hypertension, paraesophageal varices around distal esophagus on CT imaging
Continue beta-blockers
Ammonia negative,Hepatitis panel negative, GI signed off
OP GI follow up.
# Opioid-induced constipation-resolved. Continue bowel regimen
# Pancytopenia-chronic. Outpatient hematology evaluation
# Hiatal hernia/mild circumferential wall thickening-needs EGD as outpatient
# Diabetes hemoglobin A1c 6.4
Accu-Cheks and sliding scale coverage
# Hypertension-now with intermittent hypotension-Cardizem and losartan on hold
# Hyponatremia-resolved
# Hyperlipidemia/atherosclerosis-continue statin
# Chronic vertebral body endplate fractures of L3, severe discogenic degenerative disease L5-S1 with acute on chronic back pain
Continue Tylenol, lidocaine. And gabapentin. oxycodone stopped. Tramadol started
[place] brace for therapy and out of bed
PT OT
# Underweight with a BMI of 18
# Depression Zoloft was reduced from 50 mg to 25 mg at [place]
Psychiatry evaluation appreciated Zoloft discontinued. Patient started on Cymbalta and gabapentin
# Thickened endometrium-needs NEWS PRODUCTION SUPERVISOR evaluation as outpatient
# Per discussion with psychiatry patient was using 3 glass of wine every night prior to getting in the hospital in [place].Add Thiamine
# DVT prophylaxis-Eliquis
# DNR
D/W RN
D/W Case management
Called daughter and discussed and updated she is aware about all the follow-up needs that the patient needs. Medications also discussed in detail
More than 30 minutes spent in discharge including
Final examination of the patient
Summarizing hospital stay
Instructions for continuing care to all relevant caregivers
Preparation of discharge records, prescriptions, and referral forms
Part of this note was created using voice recognition system. Occasional wrong word or��sound alike� substitutions may have inadvertently occurred due to the inherent limitations of voice recognition software. If noted kindly bring it to my
attention for correction.
Anticipated Discharge: Today
Subjective/Interval History
-
Date of Service: September 03, 2025
Objective Data
-
Vital Signs:
Vital Signs
Temp Pulse Resp BP Pulse Ox
97.4 F 77 16 116/82 95
09/03/25 07:30 09/03/25 08:09 09/03/25 07:30 09/03/25 08:09 09/03/25 07:30
I&O
09/02/25 09/03/25 09/04/25
06:59 06:59 06:59
Intake Total 860 / 860 720 / 720
Balance 860 / 860 720 / 720
--- NOTE | 2025-09-03 11:46 | W.DS.TRANS ---
Addendum entered and electronically signed by Abel Hernandez MD 09/03/25 15:27:
Dictation- [id number]
Original Note:
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
-
Discharge Instructions:
Sleep Apnea Risk Low
Discharge Diagnosis/Procedures pneumonia
Back pain,
Ambulatory dysfunction
Opioid-induced constipation,
hx of cirrhosis
Hyponatremia
Pancytopenia
Hiatal hernia
Prediabetes
Hypertension
Hyperlipidemia
Depression
Diet Other diet,Diabetic, Carb Controlled
Additional Diets IDDSI soft/bite sized
Activity As tolerated
Bathing Restrictions None
Other Services PT,OT
Instructions:
Stand-Alone Forms:
Changes to Home Medications: Yes
Discharge Medications:
DC Medications w/original date entered in [employer]
apixaban 2.5 mg tablet (Eliquis) 2.5 mg PO BID Blood Clot Prevention/Tx 08/26/25
cholecalciferol (vitamin D3) 50 mcg (2,000 unit) capsule (Vitamin D3) 50 mcg PO DAILY Supplement 08/26/25
duloxetine 20 mg capsule,delayed release 20 mg PO DAILY Depression #0 caps 09/03/25
gabapentin 100 mg capsule 100 mg PO BID Pain #0 caps 09/03/25
lidocaine 4 % topical patch 2 patch topical DAILY pain #0 ea 09/03/25
melatonin 5 mg tablet 5 mg PO HS Sleep #0 tabs 09/03/25
methyl salicylate 15 %-menthol 10 % topical cream (Analgesic [place] (m.salic-menthol)) 1 applic topical TID Skin issues #0 grams 09/03/25
metoprolol tartrate 25 mg tablet 12.5 mg (1/2 x 25 mg) PO BID Blood Pressure #0 tabs 09/03/25
pantoprazole 40 mg tablet,delayed release 40 mg PO DAILY Gastrointestinal issue #0 tabs 09/03/25
polyethylene glycol 3350 17 gram oral powder packet 17 g PO BID Constipation #0 ea 09/03/25
rosuvastatin 10 mg tablet 10 mg PO HS High Cholesterol #0 tabs 09/03/25
tamsulosin 0.4 mg capsule 0.4 mg PO HS Urinary Issue #0 caps 09/03/25
thiamine mononitrate (vit B1) 100 mg tablet 100 mg PO DAILY Supplement #0 tabs 09/03/25
tramadol 50 mg tablet 50 mg PO Q6HPRN PRN moderate back pain #8 tabs 09/03/25
Home Medication Changes
Losartan, Cardizem stopped. Metoprolol dose decreased. Levaquin and ciprofloxacin stopped. Zoloft stopped
Tramadol, thiamine, MiraLAX, Protonix are new.
Duloxetine and gabapentin are new
Pending Results: No
--- NOTE | 2025-09-03 11:56 | CM ---
Patient accepted to [facility] today. Please call report to [phone]/fax [phone]. Per prior [facility] approved auth
Approved beginning 09/03 [facility] ID- [id number] web coordinator is Luz Narvaez
Updated Karli this am await time for ambulance. CM will continue to follow for discharge planning needs.
Plan; transfer to [facility]
--- NOTE | 2025-09-03 12:51 | W.PN.UPDATE ---
Update Note
Progress Note Update
patient seen chart reviewed. mrs terry looks quite well today. she was doing a word search when i met with her. she was actively engaged in talking to me about a number of things....her , her mother, her kids. she is understanding re
referral to snf and okay with it as a stepping stone to discharge to home eventually. her back is feeling much better. would continue psych meds as they are. they seem to be helping without is ill effects. would continue with cymbalta 20 gabapentin
100 mg bid and melatonin 5 mg q hs. she has not needed prn ativan. she should refrain from all etoh given liver issues. psych signing off
== END 2025-09-03 15:11 | DRG 194 ==
LOC: 4 EAST ACU 12:41
PROVIDERS: Family Medicine; Internal Medicine; Nurse Practitioner; ADMITTING PHYSICIAN Internal Medicine; ATTENDING PHYSICIAN Hospitalist; CONSULT PHYSICIAN Specialist; EMERGENCY PHYSICIAN Emergency Medicine; OTHER PHYSICIAN Psychiatry & Neurology Psychiatry
DX: J18.9 Pneumonia, unspecified organism (principal); D61.818 Other pancytopenia; N39.0 Urinary tract infection, site not specified; E22.2 Syndrome of inappropriate secretion of antidiuretic hormone; K76.6 Portal hypertension; I85.10 Secondary esophageal varices without bleeding; Z68.1 Body mass index [BMI] 19.9 or less, adult; F05 Delirium due to known physiological condition; F03.93 Unspecified dementia, unspecified severity, with mood disturbance; Z87.891 Personal history of nicotine dependence; I48.91 Unspecified atrial fibrillation; E86.1 Hypovolemia; K74.69 Other cirrhosis of liver; T40.2X5A Adverse effect of other opioids, initial encounter; K59.03 Drug induced constipation; E11.9 Type 2 diabetes mellitus without complications; I10 Essential (primary) hypertension; Z66 Do not resuscitate; R63.6 Underweight; F32.A Depression, unspecified; I48.0 Paroxysmal atrial fibrillation; Z79.01 Long term (current) use of anticoagulants; R93.89 Abnormal findings on diagnostic imaging of other specified body structures; Z11.52 Encounter for screening for COVID-19; Z79.899 Other long term (current) drug therapy
CPT/HCPCS: 51798; 71046; 74177; 80048; 80053; 81003; 81015; 82140; 82248; 82306; 82607; 82728; 82746; 82962; 83036; 83540; 83550; 83930; 83935; 84145; 84300; 84443; 85025; 85027; 85610; 86705; 86706; 86709; 86803; 87070; 87086; 87340; 87449; 87502; 87811; 87899; 92610; 93005; 96361; 96374; 96375; 97110; 97116; 97129; 97162; 97167; 97530; 97535; 99285; Q9967

== ENCOUNTER → 2025-09-06 13:16 | Outpatient (REF) | payer MEDICARE, SELFPAY ==
[2025-09-06 13:55] LABS: Hematocrit 29.4 % (37.0-47.0); Hemoglobin 10.0 g/dL (12.0-16.0); Mean Corp Hgb Conc. 34.0 g/dL (33.0-37.0); Mean Corpuscular Volume 95.5 fL (81.0-99.0); Nucleated Red Blood Cells % 0 %; Platelet Count 79 10^3/uL (130-400); Red Cell Dist. Width 18.2 % (11.5-14.5)
[2025-09-06 14:00] LABS: Blood Urea Nitrogen 6 mg/dl (7-17); Calcium 9.0 mg/dl (8.4-10.2); Carbon Dioxide 27 mmol/L (22-30); Chloride 101 mmol/L (98-107); Glucose 96 mg/dl (70-99); Potassium 3.7 mmol/L (3.5-5.1); Sodium 132 mmol/L (135-145); eGFR > 60.00
== END ==
LOC: OLABP 13:16
DX: E11.9 Type 2 diabetes mellitus without complications (principal); E87.1 Hypo-osmolality and hyponatremia; R26.1 Paralytic gait; J18.9 Pneumonia, unspecified organism; K74.60 Unspecified cirrhosis of liver; I48.0 Paroxysmal atrial fibrillation; K59.03 Drug induced constipation; D61.89 Other specified aplastic anemias and other bone marrow failure syndromes
CPT/HCPCS: 80048; 85025

== ENCOUNTER → 2025-09-11 10:28 | Outpatient (REF) | payer OTHER, MEDICARE, SELFPAY ==
[2025-09-11 15:41] LABS: Hematocrit 31.8 % (37.0-47.0); Hemoglobin 10.2 g/dL (12.0-16.0); Mean Corp Hgb Conc. 32.1 g/dL (33.0-37.0); Mean Corpuscular Volume 98.8 fL (81.0-99.0); Nucleated Red Blood Cells % 0 %; Platelet Count 77 10^3/uL (130-400); Red Cell Dist. Width 17.2 % (11.5-14.5)
[2025-09-11 15:44] LABS: Blood Urea Nitrogen 6 mg/dl (7-17); Calcium 9.0 mg/dl (8.4-10.2); Carbon Dioxide 26 mmol/L (22-30); Chloride 103 mmol/L (98-107); Glucose 104 mg/dl (70-99); Potassium 4.6 mmol/L (3.5-5.1); Sodium 131 mmol/L (135-145); eGFR > 60.00
== END ==
LOC: OLAB 10:28
PROVIDERS: ATTENDING PHYSICIAN Family Medicine
DX: K76.6 Portal hypertension (principal); D61.818 Other pancytopenia; E11.9 Type 2 diabetes mellitus without complications
CPT/HCPCS: 36415; 80048; 85025

== ENCOUNTER → 2025-10-19 13:42 | Outpatient (REF) | payer MEDICARE, SELFPAY | LOC: RCS 13:42 | PROVIDERS: ATTENDING PHYSICIAN Nurse Practitioner Family | DX: R06.09 Other forms of dyspnea (principal) | CPT/HCPCS: 93306 ==